=== PATIENT | female | born 1960 | race Caucasian/White ===

== ENCOUNTER 2017-05-10 09:02 | Inpatient (IN) | payer OTHER ==
[~2017-05-10] VITALS: Ht 154.9 cm; Wt 100.4 kg
[2017-05-10] VITALS (19 sets, daily range): BP systolic 100–125; BP diastolic 47–90; PULSE 72–90; RESP 16–20; Ht 154.9 cm; Wt 100.4 kg
[~2017-05-10 09:02] MED LIST: CEFAZOLIN 2 GM/50 ML (PMX) 50 ML IVPB SCH; SOD CHLORIDE 0.9% 1,000 ML IV SCH
[2017-05-10] MEDS ORDERED: INSU100I12 SQ (09:49)
[2017-05-10] MEDS ORDERED: GABA100C14 PO (09:50)
[2017-05-10] MEDS ORDERED: LANT3I SC (09:50)
[2017-05-10] MEDS ORDERED: ATEN50TA PO (09:51)
[2017-05-10] MEDS ORDERED: ATOR10TA65 PO (09:51)
[2017-05-10] MEDS ORDERED: TRAM-40 PO (09:52)
[2017-05-10] MEDS ORDERED: HYDR-906 PO (09:55)
[2017-05-10] MEDS ORDERED: ROCURONIUM 50 MG INJ ONE (11:11)
[2017-05-10] MEDS ORDERED: PROPOFOL 20 ML ONE (11:11)
[2017-05-10] MEDS ORDERED: MIDAZOLAM 1 MG/ML 2 ML INJ ONE (11:12)
[2017-05-10] MEDS ORDERED: PHENYLephrine (100 MCG/ML) 5ML SYG ONE ×2 (11:36→11:54)
[2017-05-10] MEDS ORDERED: METOCLOPRAMIDE 10 MG INJ ONE (11:54)
[2017-05-10] MEDS ORDERED: ACETAMINOPHEN 1000MG/100ML IV 100 ML ONE (11:54)
[2017-05-10] MEDS ORDERED: ONDANSETRON 4 MG INJ ONE (11:54)
[2017-05-10] MEDS ORDERED: DEXAMETHASONE 4 MG/ML 1 ML INJ ONE (11:54)
[2017-05-10] MEDS: CEFAZOLIN 2 GM/50 ML (PMX) 50 ML IVPB SCH ×2 (12:00→20:13)
[2017-05-10] MEDS ORDERED: BUPIVACAINE 0.25% (MPF) 30 ML INJ ONE (12:05)
[2017-05-10] MEDS ORDERED: KETOROLAC 30 MG INJ ONE (12:12)
[2017-05-10] MEDS ORDERED: SUGAMMADEX SODIUM 200 MG/2 ML VIAL IV ONE (12:28)
[2017-05-10] MEDS ORDERED: MEPERIDINE 25 MG INJ IV PRN (12:30)
[2017-05-10] MEDS ORDERED: DIPHENHYDRAMINE 50 MG INJ IV PRN (12:30)
[2017-05-10] MEDS ORDERED: FENTAnyl 50 MCG/ML VIAL IV PRN ×3 (12:30)
[2017-05-10] MEDS ORDERED: EPHEDrine SULFATE 50 MG/5 ML SYG IV PRN (12:30)
[2017-05-10] MEDS ORDERED: ONDANSETRON 4 MG INJ IV PRN (12:30)
[2017-05-10] MEDS ORDERED: hydrALAzine 20 MG INJ IV PRN (12:30)
[2017-05-10] MEDS ORDERED: LABETALOL HCL 20MG INJ IV PRN (12:30)
[2017-05-10] MEDS ORDERED: METOCLOPRAMIDE 10 MG INJ IV PRN (12:30)
[2017-05-10] MEDS ORDERED: HYDROmorphONE (0.2 MG/ML) 10ML SYG IV PRN ×3 (12:30)
--- NOTE | 2017-05-10 13:26 | OPR ---
Date/Time of Note Date/Time of Note DATE: 05/10/17 TIME: 13:19 Operative Report Procedure Date: May 10, 2017 Preoperative Diagnosis left breast cancer Postoperative Diagnosis same Operation/Procedure Performed 1. left modified radical mastectomy 2. left axillary node dissection 3. localized adjacent tissue transfer with the use of skin flaps 42 sq cm defect 4. left chest wall #19 jeff drain placement 5. therapeutic subcutaneous injection of localized anesthesia Surgeon see signature line Pediatric Radiologist none Anesthesia Type: general Estimated Blood Loss: 10 - 50 ml's Transfusion none Specimen left breast surgical markings short superior long lateral skin anterior left axillary node dissection Grafts/Implants none Complications none Indications This is a 56-year-old female with locally advanced left breast cancer with metastatic disease to the left axilla. She underwent neoadjuvant event. She is here today for a left modified radical mastectomy. Risks alternatives benefits and personnel were discussed the patient. Potential complications including but not limited to bleeding infection seroma hematoma nerve injury recurrent cancer were discussed the patient. Patient expresses understanding consents to the operation. Procedure Description Patient is taken to the OR and prepped and draped in usual sterile fashion. Surgical timeout was performed. IV antibiotics given. 2-0 silk is used to make surgical markings including the nipple areolar complex to excise a elliptical region of the anterior breast tissue along with the skin. Superior skin flaps were raised using retractors. Dissection cautery was carried down all the way down to the superior edge of the breast tissue and down to the chest wall. Inferior skin flap was then raised and dissection cautery was carried out all the way down to the chest wall. The breast was then resected circumferentially all along the chest wall and pectoral fascia was also resected along with the specimen. Surgical markings of short superior long lateral and skin anterior were given. The mastectomy was then performed. The surgical site was irrigated. There is good hemostasis. Attention was then paid to the left axilla. Axillary incision was made with a 15 blade dissection cautery was carried down through the clavipectoral fascia. The axillary contents appeared fibrotic after the neoadjuvant treatment. Had a LigaSure was used to dissect the axillary contents away from the axillary vein latissimus dorsi and serratus anterior. Careful attention was paid to keep the long thoracic and thoracodorsal out of harm's way however due to the fibrotic nature after the neoadjuvant treatment this is very difficult. Hemostasis was established. Surgical site was then irrigated. There is was good hemostasis. Due to large tissue defect localized adjacent to transfer with these of skin flaps was performed closing both surgical sites with interrupted 3-0 Vicryl and running 4-0 Monocryl. Therapeutic subcutaneous local anesthesia was injected throughout the incision sites in both the axilla and the mastectomy site. Dry dressings were applied. Guerda JAIMES May 10, 2017 13:26
[2017-05-10] MEDS ORDERED: CEFAZOLIN 2 GM/50 ML (PMX) 50 ML IVPB SCH (13:30)
[2017-05-10 13:57] LABS: BASOPHILS % 0.3 % (0.0-2.0); EOSINOPHILS % 0.5 % (0.0-7.0); HEMATOCRIT 29.8 % (37.0-47.0); HEMOGLOBIN 9.5 g/dl (12.0-16.0); HOLD TRANSMISSIONS 1; LYMPHOCYTES # 1.7 10^3/ul (0.8-2.9); LYMPHOCYTES % 26.9 % (15.0-51.0); MEAN CORPUSCULAR HEMOGLOBIN 33.7 pg (29.0-33.0); MEAN CORPUSCULAR HGB CONC 31.9 g/dl (32.0-37.0); MEAN CORPUSCULAR VOLUME 105.7 fl (82.0-101.0); MEAN PLATELET VOLUME 8.2 fl (7.4-10.4); MONOCYTE # 0.3 10^3/ul (0.3-0.9); MONOCYTES % 4.7 % (0.0-11.0); NEUTROPHIL # 4.3 10^3/ul (1.6-7.5); PLATELET COUNT 214 10^3/UL (140-415); RED BLOOD COUNT 2.82 10^6/ul (4.20-5.40); RED CELL DISTRIBUTION WIDTH 16.3 % (11.5-14.5); WHITE BLOOD COUNT 6.4 10^3/ul (4.8-10.8)
[2017-05-10] MEDS ORDERED: SUCCINYLCHOLINE CHLORIDE 100 MG/5 ML SYG IV ONE (13:58)
[2017-05-10] MEDS ORDERED: CLINDAMYCIN 900 MG/D5W (PMX) 50 ML IVPB ONE (14:04)
[2017-05-10 14:14] LABS: ALBUMIN 3.4 g/dl (3.3-4.9); ALBUMIN/GLOBULIN RATIO 1.17; BILIRUBIN,INDIRECT 0.5 mg/dl (0-1.1); BILIRUBIN,TOTAL 0.5 mg/dl (0.2-1.3); TOTAL PROTEIN 6.3 g/dl (6.1-8.1)
[2017-05-10 14:21] LABS: CALCIUM 7.9 mg/dl (8.4-10.2); CREATININE 0.58 mg/dl (0.44-1.00); POTASSIUM 3.9 mmol/L (3.5-5.1)
[2017-05-10] MEDS ORDERED: HYDROmorphONE 0.2 MG/ML PCA IV SCH (14:30)
[2017-05-10] MEDS ORDERED: HYDROCODONE/APAP (5/325) TAB PO PRN (15:30)
[2017-05-10] MEDS: SOD CHLORIDE 0.9% 1,000 ML IV SCH ×2 (16:33→23:17)
[2017-05-10] MEDS: INSULIN ASPART [NOVOLOG] 3 ML PEN SC SCH ×3 (17:56→20:29)
[2017-05-11 01:06] VITALS: BP 102/75; RESP 20
[2017-05-11] MEDS ORDERED: ACCU-CHEK XX SCH ×3 (02:00)
[2017-05-11] MEDS ORDERED: INSULIN ASPART [NOVOLOG] 3 ML PEN SC ONE (03:30)
[2017-05-11] MEDS: CEFAZOLIN 2 GM/50 ML (PMX) 50 ML IVPB SCH (03:44)
[2017-05-11] MEDS: SOD CHLORIDE 0.9% 1,000 ML IV SCH ×3 (03:44→13:52)
--- NOTE | 2017-05-11 04:01 | HP ---
DATE OF ADMISSION: 05/10/2017 HISTORY OF PRESENT ILLNESS: The patient is a 56-year-old pleasant female with past medical history positive for hypertension, diabetes, arthritis. The patient presented with locally advanced left br east cancer with metastatic disease to the left axilla. The patient underwent neoadjuvant chemother apy. The patient was evaluated by Dr. Erazo in surgical consultation and patient was brought to the [facility] and underwent left modified radical mastectomy and left axillary node dissection. Postopera tively, the patient experienced moderate pain and patient will be admitted for further evaluation an d management. PAST MEDICAL HISTORY: Positive for hypertension, insulin-dependent diabetes, arthritis and chronic back pain and obesity. PAST SURGICAL HISTORY: The patient is status post . FAMILY HISTORY: Patient denies any history of breast or ovarian cancer. SOCIAL HISTORY: Patient lives at home with the family. The patient denies any tobacco use, denies any alcohol use, denies any illicit drug use. ALLERGIES: NO KNOWN ALLERGIES. HOME MEDICATIONS: Include: 1. Atenolol. 2. Atorvastatin. 3. Gabapentin. 4. Metaline. 5. Lantus units subQ b.i.d. 6. Tramadol. 7. Insulin. 8. Lispro 20 units subQ with meals. REVIEW OF SYSTEMS: A 12-point review of systems is negative unless what is mentioned in the HPI. PHYSICAL ASSESSMENT: GENERAL: Well-developed, obese female currently is awake, alert. VITAL SIGNS: Temperature 98.6, pulse 76, blood pressure 112/47, respiratory rate 17, oxygen saturat ion 94% on 2 liters nasal cannula. HEENT: Head is atraumatic, normocephalic. Pupils equal, round, reactive to light and accommodation . Oral mucosa is pink and moist. NECK: Supple, no cervical lymphadenopathy, no thyromegaly. LUNGS: Clear bilaterally. There is no rhonchi, wheezes, rales noted. CARDIOVASCULAR: Normal S1, S2. No murmurs, gallops, clicks, rubs noted. CHEST: Status-post surgery with dry, clean and intact dressing and left axillary HEVER. ABDOMEN: Protuberant, soft, nondistended, nontender. Bowel sounds present. There is no guarding o r rebound tenderness. EXTREMITIES: No edema, clubbing, cyanosis. Pulses equal bilaterally 2+. SKIN: There is no rash, petechiae noted. NEUROLOGIC: Patient is awake, alert and oriented x4. No focal deficits noted. Patient moves all e xtremities. LABORATORY DATA: On admission, CBC: White blood cells 6.4, hemoglobin is 9.5, hematocrit 29.8, christofer telets 214. Chemistry: Sodium is 138, potassium 3.9, chloride 104, carbon dioxide 30, anion gap 8, BUN is 9, creatinine 0.58, glucose 164, calcium is 7.9. ASSESSMENT AND PLAN: 1. Locally advanced left breast cancer with metastatic disease to the left axilla status post left modified radical mastectomy and left axillary node dissection. Patient is continued on Dilaudid COMMERCIAL ESTIMATOR for pain control, will continue Zofran p.r.n. for nausea. Continue IV fluids and postoperative ant ibiotics. Advance diet to 1800 ADA. 2. Insulin-dependent diabetes mellitus. We will continue Lantus and premeal NovoLog. Continue to monitor Accu-Chek before meals and at bedtime. 3. Hypertension. Continue to monitor blood pressure. Continue atenolol. 4. Obesity with body mass index 41.8. We will continue incentive spirometer q. 1 hour while patien t is awake, sequential compression devices for deep venous thrombosis prophylaxis. Further recommen dations based on clinical course. Plan of care discussed with Dr. Patel. Dictated By: CARINE GARRETT SOCCER COACH for ROBE PATEL MD SR/NTS Conf#: [id number] DID#: [id number]
[2017-05-11 05:00] VITALS: BP 113/61; PULSE 74; RESP 18
[2017-05-11 05:19] LABS: BASOPHILS % 0.2 % (0.0-2.0); HEMATOCRIT 27.7 % (37.0-47.0); HEMOGLOBIN 8.7 g/dl (12.0-16.0); LYMPHOCYTES # 0.9 10^3/ul (0.8-2.9); LYMPHOCYTES % 15.4 % (15.0-51.0); MEAN CORPUSCULAR HEMOGLOBIN 33.2 pg (29.0-33.0); MEAN CORPUSCULAR HGB CONC 31.4 g/dl (32.0-37.0); MEAN CORPUSCULAR VOLUME 105.7 fl (82.0-101.0); MEAN PLATELET VOLUME 8.6 fl (7.4-10.4); MONOCYTE # 0.4 10^3/ul (0.3-0.9); MONOCYTES % 6.2 % (0.0-11.0); NEUTROPHIL # 4.5 10^3/ul (1.6-7.5); NEUTROPHILS % 77.7 % (39.0-77.0); PLATELET COUNT 222 10^3/UL (140-415); RED BLOOD COUNT 2.62 10^6/ul (4.20-5.40); RED CELL DISTRIBUTION WIDTH 15.9 % (11.5-14.5); WHITE BLOOD COUNT 5.8 10^3/ul (4.8-10.8)
[2017-05-11 05:50] LABS: ALBUMIN 3.1 g/dl (3.3-4.9); ALBUMIN/GLOBULIN RATIO 1.1; BILIRUBIN,INDIRECT 0.4 mg/dl (0-1.1); BILIRUBIN,TOTAL 0.4 mg/dl (0.2-1.3); CALCIUM 7.7 mg/dl (8.4-10.2); CREATININE 0.58 mg/dl (0.44-1.00); POTASSIUM 4.3 mmol/L (3.5-5.1); TOTAL PROTEIN 5.9 g/dl (6.1-8.1)
--- NOTE | 2017-05-11 07:49 | PN ---
Date/Time of Note Date/Time of Note DATE: 05/11/17 TIME: 07:48 Assessment/Plan VTE Prophylaxis VTE Prophylaxis Intervention: SCD's Lines/Catheters IV Catheter Type (from Nrsg): Peripheral IV Assessment/Plan Chief Complaint/Hosp Course s/p let modified radical mastectomy, axillary node dissection and placement of drain Problems: Assessment/Plan doing well dc home with drain and f/u in 2 weeks Subjective 24 Hr Interval Summary Free Text/Dictation doing well, tolerating diet, pain under control Exam/Review of Systems Vital Signs Vitals Vital Signs Date Time Temp Pulse Resp B/P Pulse Ox O2 Delivery O2 Flow Rate FiO2 05/11/17 05:00 18 05/11/17 05:00 98.8 74 113/61 98 Nasal Cannula 2.0 Intake and Output 05/10/17 05/10/17 05/11/17 15:00 23:00 07:00 Intake Total 1600 ml 290 ml 550 ml Output Total 503 ml 100 ml 935 ml Balance 1097 ml 190 ml -385 ml Exam c/d/i drain in place serosanguinous Results Result Diagram: 05/11/17 0429 05/11/17 0429 Results 24 hrs Laboratory Tests Test 05/10/17 10:06 05/10/17 13:33 05/10/17 13:52 05/10/17 17:48 Bedside Glucose 142 145 244 H White Blood Count 6.4 Red Blood Count 2.82 L Hemoglobin 9.5 L Hematocrit 29.8 L Mean Corpuscular Volume 105.7 H Mean Corpuscular Hemoglobin 33.7 H Mean Corpuscular Hemoglobin Concent 31.9 L Red Cell Distribution Width 16.3 H Platelet Count 214 Mean Platelet Volume 8.2 Neutrophils % 67.0 Lymphocytes % 26.9 Monocytes % 4.7 Eosinophils % 0.5 Basophils % 0.3 Nucleated Red Blood Cells % 0.0 Neutrophils # 4.3 Lymphocytes # 1.7 Monocytes # 0.3 Eosinophils # 0.0 Basophils # 0.0 Nucleated Red Blood Cells # 0.0 CBC Results Faxed/Phoned 1 *H Sodium Level 138 Potassium Level 3.9 Chloride Level 104 Carbon Dioxide Level 30 Anion Gap 8 Blood Urea Nitrogen 9 Creatinine 0.58 Glucose Level 164 Calcium Level 7.9 L Total Bilirubin 0.5 Direct Bilirubin 0.00 Indirect Bilirubin 0.5 Aspartate Amino Transf (AST/SGOT) 23 Alanine Aminotransferase (ALT/SGPT) 25 Alkaline Phosphatase 51 Total Protein 6.3 Albumin 3.4 Globulin 2.90 Albumin/Globulin Ratio 1.17 Test 05/10/17 20:24 05/11/17 02:13 05/11/17 04:29 Bedside Glucose 257 H 263 H White Blood Count 5.8 Red Blood Count 2.62 L Hemoglobin 8.7 L Hematocrit 27.7 L Mean Corpuscular Volume 105.7 H Mean Corpuscular Hemoglobin 33.2 H Mean Corpuscular Hemoglobin Concent 31.4 L Red Cell Distribution Width 15.9 H Platelet Count 222 Mean Platelet Volume 8.6 Neutrophils % 77.7 H Lymphocytes % 15.4 Monocytes % 6.2 Eosinophils % 0.0 Basophils % 0.2 Nucleated Red Blood Cells % 0.0 Neutrophils # 4.5 Lymphocytes # 0.9 Monocytes # 0.4 Eosinophils # 0.0 Basophils # 0.0 Nucleated Red Blood Cells # 0.0 Sodium Level 137 Potassium Level 4.3 Chloride Level 103 Carbon Dioxide Level 29 Anion Gap 9 Blood Urea Nitrogen 14 Creatinine 0.58 Glucose Level 265 #H Hemoglobin A1c 6.9 H Calcium Level 7.7 L Total Bilirubin 0.4 Direct Bilirubin 0.00 Indirect Bilirubin 0.4 Aspartate Amino Transf (AST/SGOT) 14 L Alanine Aminotransferase (ALT/SGPT) 21 Alkaline Phosphatase 47 Total Protein 5.9 L Albumin 3.1 L Globulin 2.80 Albumin/Globulin Ratio 1.10 Medications Medications Current Medications Sodium Chloride (NS) 1,000 ml @ 100 mls/hr Q10H IV Last administered on 03:44; Admin Dose 100 MLS/HR; Start 05/10/17 at 13:17 Hydromorphone HCl (Dilaudid METAL BONDING WORKER) 0 MG/HR CONTINUOUS R... Q4PCA IV Last administered on 05/10/17 14:32; Admin Dose 6 MG; Start 05/10/17 at 14:30 Acetaminophen/ Hydrocodone Bitart ([place] (5/325)) 1 tab Q4H PRN PO PAIN; Start 05/10/17 at 15:30 Atenolol (Tenormin) 50 mg DAILY PO ; Start 05/11/17 at 09:00 Insulin Glargine (Lantus) 30 unit DAILY@08 SC ; Start 05/11/17 at 08:00 Diagnostic Test (Pha) 1 ea 1 ea 02 XX ; Start 05/11/17 at 02:00 Cefazolin Sodium/ Dextrose (Ancef 2 Gm/50 ml (Pmx)) 50 ml @ 100 mls/hr Q8H IVPB Last administered on 05/11/17t 03:44; Admin Dose 100 MLS/HR; Start 05/10 at 12:00; Stop 05/11/17 at 11:59 Guerda JAIMES May 11, 2017 07:49
[2017-05-11] MEDS ORDERED: INSULIN GLARGINE [LANtus] 3 ML PEN SC SCH (08:00)
[2017-05-11 08:04] VITALS: BP 103/51; RESP 18
[2017-05-11] MEDS: INSULIN ASPART [NOVOLOG] 3 ML PEN SC SCH ×4 (08:52→12:42)
[2017-05-11] MEDS ORDERED: ATENOLOL 50 MG TAB PO SCH (09:00)
--- NOTE | 2017-05-11 14:53 | PDOCDIS ---
Discharge Instructions CONDITION Patient Condition: Stable HOME CARE INSTRUCTIONS: Diet Instructions: ACTIVITY: Activity Restrictions: Slowly Increase Activity Rest between Activity Avoid heavy lifting Do not Drive Do not operate Machinery Do not operate Power Tool Avoid Heavy Housework Bathing Restrictions: Sponge Bath FOLLOW UP/APPOINTMENTS Follow-up Plan FU with primary MD X 1 WEEK FU with surgery as recommended. Call 911 or got to the nearest hospital if symptoms get worse- patient verbalized understanding dc instructions. Virgilio Patel/family/staff PIERCE MARQUEZ May 11, 2017 14:52
[2017-05-11] MEDS ORDERED: DOCU-144 PO (14:56)
[2017-05-11] MEDS ORDERED: NOVO3I SC (14:58)
[2017-05-11] MEDS ORDERED: LANT3I SC (14:58)
--- NOTE | 2017-05-11 15:01 | DS ---
Date/Time of Note Date/Time of Note DATE: 05/11/17 TIME: 15:01 Discharge Summary Admission/Discharge Info Admit Date/Time May 10, 2017 at 09:02 Discharge Date/Time Hospital Course s/p let modified radical mastectomy, axillary node dissection and placement of drain Home Meds Active Scripts Insulin Glargine* (Lantus*) 100 Unit/Ml Soln, 30 UNIT SC DAILY@08 for 30 Days Prov:PIERCE MARQUEZ 05/11/17 Insulin Aspart* (Novolog Insulin Pen*) 100 Unit/Ml Soln, 10 UNIT SC WITH MEALS for 30 Days Prov:PIERCE MARQUEZ 05/11/17 Docusate Sodium* (Colace*) 100 Mg Capsule, 100 MG PO BID, #30 CAP Prov:PIERCE MARQUEZ 05/11/17 Reported Medications Hydrocodone/Acetaminophen ([place] 5-325 Tablet) 1 Each Tablet, 1 EACH PO Q6 Y for PAIN, TAB 05/10/17 Tramadol Hcl* (Ultram*) 50 Mg Tablet, 50 MG PO BID Y for PAIN, TAB 05/10/17 Atenolol* (Atenolol*) 50 Mg Tablet, 50 MG PO DAILY, #30 TAB 05/10/17 Atorvastatin Calcium (Atorvastatin Calcium) 10 Mg Tablet, 10 MG PO QHS, #30 TAB 05/10/17 Gabapentin* (Gabapentin*) 100 Mg Capsule, 100 MG PO QHS, #90 CAP 05/10/17 Discontinued Reported Medications Insulin Glargine* (Lantus*) 100 Unit/Ml Soln, 50 UNIT SC BID, #1 VIAL 05/10/17 Insulin Lispro (Humalog Kwikpen U-100) 100 Unit/1 Ml Insuln.pen, 20 UNIT SQ AC MEALS Y for ELEVATED GLUCOSE HOLD IF BS BELOW 100 OR NPO 05/10/17 Follow-up Plan FU with primary MD X 1 WEEK FU with surgery as recommended. Call 911 or got to the nearest hospital if symptoms get worse- patient verbalized understanding dc instructions. Virgilio Patel/family/staff Primary Care Provider Vaibhav Juarez Pending Labs Laboratory Tests Test 05/10/17 17:48 05/10/17 20:24 05/11/17 02:13 05/11/17 04:29 Bedside Glucose 244mg/dL (70-220) 257mg/dL (70-220) 263mg/dL (70-220) White Blood Count 5.810^3/ul (4.8-10.8) Red Blood Count 2.6210^6/ul (4.20-5.40) Hemoglobin 8.7g/dl (12.0-16.0) Hematocrit 27.7% (37.0-47.0) Mean Corpuscular Volume 105.7fl (82.0-101.0) Mean Corpuscular Hemoglobin 33.2pg (29.0-33.0) Mean Corpuscular Hemoglobin Concent 31.4g/dl (32.0-37.0) Red Cell Distribution Width 15.9% (11.5-14.5) Platelet Count 87134^3/UL (140-415) Mean Platelet Volume 8.6fl (7.4-10.4) Neutrophils % 77.7% (39.0-77.0) Lymphocytes % 15.4% (15.0-51.0) Monocytes % 6.2% (0.0-11.0) Eosinophils % 0.0% (0.0-7.0) Basophils % 0.2% (0.0-2.0) Nucleated Red Blood Cells % 0.0/100WBC (0.0-0.0) Neutrophils # 4.510^3/ul (1.6-7.5) Lymphocytes # 0.910^3/ul (0.8-2.9) Monocytes # 0.410^3/ul (0.3-0.9) Eosinophils # 0.010^3/ul (0.0-0.5) Basophils # 0.010^3/ul (0.0-0.1) Nucleated Red Blood Cells # 0.010^3/ul (0.0-0.0) Sodium Level 137mmol/L (135-144) Potassium Level 4.3mmol/L (3.5-5.1) Chloride Level 103mmol/L (97-110) Carbon Dioxide Level 29mmol/L (21-31) Anion Gap 9 (8-16) Blood Urea Nitrogen 14mg/dl (7-20) Creatinine 0.58mg/dl (0.44-1.00) Glucose Level 265mg/dl (70-220) Hemoglobin A1c 6.9% (0-5.9) Calcium Level 7.7mg/dl (8.4-10.2) Total Bilirubin 0.4mg/dl (0.2-1.3) Direct Bilirubin 0.00mg/dl (0.00-0.20) Indirect Bilirubin 0.4mg/dl (0-1.1) Aspartate Amino Transf (AST/SGOT) 14IU/L (15-46) Alanine Aminotransferase (ALT/SGPT) 21IU/L (13-69) Alkaline Phosphatase 47IU/L (42-121) Total Protein 5.9g/dl (6.1-8.1) Albumin 3.1g/dl (3.3-4.9) Globulin 2.80g/dl (1.3-3.2) Albumin/Globulin Ratio 1.10 Test 05/11/17 08:38 05/11/17 12:35 Bedside Glucose 264mg/dL (70-220) 183mg/dL (70-220) PIERCE MARQUEZ May 11, 2017 15:01
[2017-05-11 15:10] VITALS: BP 106/60; RESP 18
== END 2017-05-11 16:15 | disposition home or self-care (01) | DRG 580 ==
LOC: REC 09:02 → EDSTATUS 14:00 → MS1 15:10
PROVIDERS: ADMIT Internal Medicine; ATTEND Surgery
PROC: 0HTU0ZZ Resection of Left Breast, Open Approach (ICD-10-PCS; 2017-05-10)
PROC: 0HHU0NZ Insertion of Tissue Expander into Left Breast, Open Approach (ICD-10-PCS; 2017-05-10)
PROC: 07B60ZZ Excision of Left Axillary Lymphatic, Open Approach (ICD-10-PCS; principal; 2017-05-10 11:00)
DX: C50.912 Malignant neoplasm of unspecified site of left female breast (principal); C79.89 Secondary malignant neoplasm of other specified sites; Z68.41 Body mass index [BMI] 40.0-44.9, adult; E11.9 Type 2 diabetes mellitus without complications; E66.9 Obesity, unspecified; G89.18 Other acute postprocedural pain; G89.29 Other chronic pain; M54.9 Dorsalgia, unspecified; Z79.4 Long term (current) use of insulin
CPT/HCPCS: 80053; 82962; 83036; 85025; 88307; J0131; J0690; J1100; J1170; J1815; J1885; J2250; J2370; J2405; J2765; J3010; J7030; J7999

== ENCOUNTER 2018-07-26 16:35 | Inpatient (IN) | payer OTHER ==
[~2018-07-26] VITALS: Ht 154.9 cm; Wt 89.8 kg
[~2018-07-26 16:35] MED LIST changes: +ATEN50TA PO; +ATOR10TA65 PO; -CEFAZOLIN 2 GM/50 ML (PMX) 50 ML IVPB SCH; +DOCU-144 PO; +GABA100C14 PO; +HYDR-4011 PO; +LANT3I SC; +NOVO3I SC; -SOD CHLORIDE 0.9% 1,000 ML IV SCH; +TRAM50TA PO
[2018-07-26 19:40] VITALS: PULSE 93
[2018-07-26 20:00] VITALS: PULSE 93
--- NOTE | 2018-07-26 20:00 | NUR ---
ADMIT PATIENT ADMITTED FROM [facility] DUE TO SOB, WITH DX OF PNEUMOTHORAX. AWAKE, ALERT, ORIENTED, AMBULATORY. REFUSED BED ALARM SHE SAID SHE FREQUENTLY GETS UP, EXPLAINED THE RISK AND BENEFITS OF THE BED ALARM, PATIENT VERBALIZED UNDERSTANDING BUT STILL REFUSED TO HAVE IT AND SAYING FAMILY IS WITH HER. NSR ON THE MONITOR.
[2018-07-26 20:15] VITALS: BP 140/62; PULSE 92; RESP 20
[2018-07-26 20:23] VITALS: Ht 154.9 cm; Wt 89.8 kg
[2018-07-26] MEDS ORDERED: HYDROCODONE/APAP (5/325) TAB PO PRN (20:30)
[2018-07-26] MEDS ORDERED: ACETAMINOPHEN 325 MG TAB PO PRN (20:30)
[2018-07-26] MEDS ORDERED: DOCUSATE SODIUM 100 MG CAP PO PRN (20:30)
[2018-07-26] MEDS ORDERED: NACL 0.9% 3 ML SYG IV SCH (20:30)
[2018-07-26] MEDS ORDERED: BISACODYL (EC) 5 MG TAB PO PRN (20:30)
[2018-07-26] MEDS ORDERED: ONDANSETRON 4 MG INJ IV PRN (20:30)
[2018-07-26] MEDS ORDERED: DEXTROSE 50% 50 ML SYRINGE IV PRN ×2 (21:00)
[2018-07-26] MEDS ORDERED: GLUCOSE GEL 15 GRAM TUBE PO PRN ×2 (21:00)
[2018-07-26] MEDS ORDERED: GLUCOSE GEL 15 GRAM TUBE BUCCAL PRN (21:00)
[2018-07-26] MEDS ORDERED: GLUCAGON 1 MG INJ IM PRN (21:00)
--- NOTE | 2018-07-26 21:22 | HP ---
Date/Time of Note Date/Time of Note DATE: 07/26/18 TIME: 21:22 Assessment/Plan VTE Prophylaxis SCD applied (from Nsg): No SCD contraindicated: other (bilateral lower extremity swelling) Pharmacological prophylaxis: NA/contraindicated Pharm contraindication: surgical contra Lines/Catheters IV Catheter Type (from Nrsg): port-a-cath Assessment/Plan Hospital Course This is a 57-year-old female being admitted to the telemetry floor for: #1 left-sided hydropneumothorax: At the current time we will obtain a stat chest x-ray. Supplemental oxygen. Consult CT surgery for Pleurx catheter, will defer this to the day team #2 breast cancer with metastasis: Patient currently is not on chemotherapy since April secondary to toxicity. Consider hematology consultation in house, will defer this to day team. Resume home pain medications #3 hypertension: Continue atenolol, EVERARDO inhibitor #4 diabetes meds: Continue insulin, insulin sliding scale, will hold home oral hypoglycemics #5 hyperlipidemia: Continue statin #6 DVT GI prophylaxis: We will obtain venous Doppler ultrasounds if those are negative then start her on SCDs. once the patient has her procedure performed we can give her chemical DVT prophylaxis, no GI prophylaxis indicated Further treatment strategy will be implemented as per the clinical course Result Diagram: 07/26/182048 Results 24hrs Laboratory Tests Test 07/26/18 20:49 White Blood Count 9.2 # Red Blood Count 3.70 #L Hemoglobin 8.6 L Hematocrit 29.7 L Mean Corpuscular Volume 80.3 #L Mean Corpuscular Hemoglobin 23.2 #L Mean Corpuscular Hemoglobin Concent 29.0 L Red Cell Distribution Width 20.1 #H Platelet Count 391 # Mean Platelet Volume 8.9 Immature Granulocytes % 0.900 H Neutrophils % 68.8 Lymphocytes % 23.3 Monocytes % 6.4 Eosinophils % 0.3 Basophils % 0.3 Nucleated Red Blood Cells % 0.0 Immature Granulocytes # 0.080 H Neutrophils # 6.3 Lymphocytes # 2.1 Monocytes # 0.6 Eosinophils # 0.0 Basophils # 0.0 Nucleated Red Blood Cells # 0.0 HPI/ROS Admit Date/Time Admit Date/Time Jul 26, 2018 at 19:23 Hx of Present Illness Chief complaint: Worsening shortness of breath This is a 57-year-old female with a history of metastatic breast cancer who presented to the ED at [facility] on 07/23/2018 with shortness of breath that had been going on for 2 weeks. She had no relieving factors of the shortness of breath. She would have shortness of breath with minimal exertion. She had a history of effusions in the past and had thoracentesis done. There was concern for possible repeat effusion. A chest x-ray was ordered which confirmed a large left pleural effusion. The patient had an emergent IR therapeutic thoracentesis done for drainage. After the drainage patient 12 respiratory distress and repeat chest x-ray showed a pneumothorax. Patient wanted to go home however prior to discharge she had a repeat chest x-ray done as well that showed a worsening pneumothorax and the patient was admitted to the hospital. He was also noted the patient required a nonrebreather mask which was eventually titrated down to 3 L nasal cannula. She remained stable in the ICU. She was found to have a left hydropneumothorax with increased left pleural effusion. Pulmonology was consulted and thoracic surgery was consulted for Pleurx catheter. She was subsequently transferred to [facility] for Pleurx catheter placement by . At the current time patient is sitting upright in bed in no acute distress, she does report that when she lays down to sleep it is does become difficult for her to breathe. She does see for her breast cancer she was being treated with chemotherapy however she has not been receiving chemotherapy since April secondary to toxicity. Allergies: NKDA Medications: See MAR Pertinent findings from the transfer facility please see chart for full details: CT chest without contrast on 1225/facility shows: Widespread blastic osseous and pulmonary metastasis. Bilateral diffuse groundglass and nodular opacities most likely of atypical infectious or inflammatory etiology. Moderate left and small right pleural effusions with associated compressive atelectasis and left lower lobe collapse. There is increased collapse of left lung as well as new large air component of to the pleural effusion which is now a hydropneumothorax. Labs from 07/25/2018 CBC: Hemoglobin 9.1 hematocrit 30 platelet count 423 white blood cell count 6.3 creatinine 0.8 ROS Const: As per HPI Eyes : No pain discharge or redness or change in visual acuity ENT: No pain, sore throat, congestion, congestion, dysphagia or discharge Respiratory: As per HPI Cardiovascular: No chest pain, palpitation, PND, or edema GI : no change in appetite, abdominal pain, nausea, vomiting, diarrhea, constipation, or change in the color his stool Genitourinary: No dysuria, hematuria, flank pain , discharge or CVA tenderness Musculoskeletal: No joint pain, back pain, neck pain, restricted range of motion in neck or joints Skin: No rash, bruising or hives Neuro: No headache, dizziness, syncope, seizure, focal weakness Endocrine: No polyuria, polydipsia, temperature intolerance Psych: No hallucination, depression, anxiety or suicidal ideation PMH/Family/Social Past Medical History Diabetes mellitus, hypertension, hyperlipidemia, breast cancer with metastasis stage IV, obesity hypoventilation syndrome Medications Current Medications Sodium Chloride 1,000 ml @ 70 mls/hr [id number] IV ; Start 07/27/18 at 00:00 IV Flush (NS 3 ml) 3 ml PER PROTOCOL IV ; Start 07/26/18 at 20:30 Ondansetron HCl (Zofran Inj) 4 mg Q6H PRN IV NAUSEA AND/OR VOMITING; Start 07/26/18 at 20:30 Acetaminophen (Tylenol Tab) 650 mg Q6H PRN PO PAIN LEVEL 1-3 OR FEVER; Start 07/26/18 at 20:30 Docusate Sodium (Colace) 100 mg Q12H PRN PO CONSTIPATION; Start 07/26/18 at 20:30 Bisacodyl (Dulcolax) 5 mg DAILY PRN PO CONSTIPATION; Start 07/26/18 at 20:30 Insulin Aspart (Novolog Insulin Pen) NOVOLOG *MILD* ALGORI... Q4 SC ; Start 07/26/18 at 21:00 Atenolol (Tenormin) 50 mg DAILY PO ; Start 07/27/18 at 09:00 Atorvastatin Calcium (Lipitor) 10 mg QHS PO ; Start 07/26/18 at 21:00 Docusate Sodium (Colace) 100 mg BID PO ; Start 07/26/18 at 21:00 Gabapentin (Neurontin) 100 mg QHS PO ; Start 07/26/18 at 21:00 Acetaminophen/ Hydrocodone Bitart ([place] (5/325)) 5 tab Q6 PRN PO PAIN; Start 07/26/18 at 20:30 Insulin Aspart (Novolog Insulin Pen) 10 unit WITH MEALS SC ; Start 07/27/18 at 07:55 Insulin Glargine (Lantus) 30 units DAILY@08 SC ; Start 07/27/18 at 08:00 Tramadol HCl (Ultram) 50 mg BID PRN PO PAIN; Start 07/26/18 at 20:30 Miscellaneous Information 1 ea NOTE XX ; Start 07/26/18 at 21:00 Glucose (Glutose) 15 gm Q15M PRN PO DECREASED GLUCOSE; Start 07/26/18 at 21:00 Glucose (Glutose) 22.5 gm Q15M PRN PO DECREASED GLUCOSE; Start 07/26/18 at 21:00 Dextrose (D50w Syringe) 25 ml Q15M PRN IV DECREASED GLUCOSE; Start 07/26/18 at 21:00 Dextrose (D50w Syringe) 50 ml Q15M PRN IV DECREASED GLUCOSE; Start 07/26/18 at 21:00 Glucagon (Glucagen) 1 mg Q15M PRN IM DECREASED GLUCOSE; Start 07/26/18 at 21:00 Glucose (Glutose) 15 gm Q15M PRN BUCCAL DECREASED GLUCOSE; Start 07/26/18 at 21:00 Coded Allergies: No Known Allergy (Unverified , 05/10/17) Past Surgical History Left breast mastectomy, status post thoracentesis x2 Family History Significant Family History: cancer (Brother of lung cancer) Social History Alcohol Use: none Smoking Status: Never smoker Drug Use: none Exam/Review of Systems Vital Signs Vitals Vital Signs Date Temp Pulse Resp B/P (MAP) Pulse Ox O2 O2 Flow FiO2 Time Delivery Rate 07/26/18 100.1 92 20 140/62 95 20:15 (88) Exam Exam General: Patient is a pleasant female currently sitting upright in bed in no acute distress HEENT: Atraumatic, normocephalic. The pupils are equal, round and reactive. Extraocular motor are intact Neck: Supple with full range of motion. No rigidity or meningismus Chest: Nontender Lungs: Diminished breath sounds at the left lung base, coarse breath sounds bilaterally Heart: Normal S1-S2, Regular rhythm and rate. Abdomen: Soft , nontender, nondistended , bowel sounds are present. No guarding no rebound tenderness , No masses or organomegaly. No costovertebral temporal angle mass Extremities: 2+ pitting edema of the bilateral lower extremities Neurologic: Normal mental status, speech normal, cranial nerves II through XII are intact, motor and sensory are intact, Additional Comments PROCEDURE: XR Chest. CLINICAL INDICATION: Pneumothorax TECHNIQUE: Frontal chest x-ray was obtained. COMPARISON: It is chest x-ray July 25 FINDINGS: Noted is a right IJ Port-A-Cath. Heart is not enlarged. Mediastinum is not widened. No hilar masses seen. There is persistent dense consolidation in the left lower lobe with left pleural effusion unchanged. Increased perihilar bronchovascular markings are seen in the right lung with small effusion. No pneumothorax is present. The osseous structures are intact. IMPRESSION: No pneumothorax visualized. Persistent dense left lower lobe consolidation with effusion. Increased perihilar bronchovascular markings with tiny right pleural effusion. No change. .Tae Good MD, MD Date Time Electronically viewed and signed by .Tae Good MD, MD on 07/26/2018 21:34 .A/ CC: JASON GAMEZ [id number] JASON GAMEZ Jul 26, 2018 21:22
[2018-07-26] MEDS: GABAPENTIN 100 MG CAP PO SCH (22:08)
[2018-07-26] MEDS: ATORVASTATIN 10 MG TAB PO SCH (22:08)
[2018-07-26] MEDS: DOCUSATE SODIUM 100 MG CAP PO SCH (22:08)
[2018-07-26] MEDS: INSULIN ASPART [NOVOLOG] 3 ML PEN SC SCH (23:06)
[2018-07-27] VITALS (10 sets, daily range): BP systolic 108–139; BP diastolic 53–68; PULSE 78–101; RESP 18–20
[2018-07-27] MEDS ORDERED: SOD CHLORIDE 0.9% 1,000 ML IV SCH
[2018-07-27] MEDS: INSULIN ASPART [NOVOLOG] 3 ML PEN SC SCH ×7 (01:43→17:49)
[2018-07-27] MEDS ORDERED: ACCU-CHEK XX SCH (02:00)
[2018-07-27] MEDS ORDERED: ENAL10TA PO (03:19)
[2018-07-27] MEDS ORDERED: ATOR10TA65 PO (03:19)
[2018-07-27] MEDS ORDERED: FER325 PO (03:19)
[2018-07-27] MEDS ORDERED: INSU100C SQ (03:19)
[2018-07-27] MEDS ORDERED: METF100010 PO (03:19)
[2018-07-27] MEDS ORDERED: ASPI-817 PO (03:19)
[2018-07-27] MEDS ORDERED: TRAM50TA PO (03:19)
[2018-07-27] MEDS ORDERED: ATEN50TA PO (03:19)
[2018-07-27] MEDS ORDERED: SOLOSTAR INJECTION (03:19)
--- NOTE | 2018-07-27 07:35 | NUR ---
EOSS: KEPT NPO POST MIDNIGHT. AWAITING PULMO CONSULT Addendum: 07/27/18 at 0739 by GRACIA SILVESTRE RN AWAITING PULM CONSULT WILL VERIFY DIET ORDER. STEADY GAIT. STILL REFUSING BED ALARM.
[2018-07-27] MEDS: DOCUSATE SODIUM 100 MG CAP PO SCH ×2 (09:00→21:00)
[2018-07-27] MEDS: ATENOLOL 50 MG TAB PO SCH (09:19)
[2018-07-27] MEDS: INSULIN GLARGINE [LANTus] (100 UNITS/ML) SYG SC SCH (09:36)
--- NOTE | 2018-07-27 10:28 | NUR ---
Discharge planning; Followed up on order for home oxygen set up; will need to assess Patient without oxygen support and evaluate her oxygen saturation tolerance. Informed arts and humanities council director and will obtain oxygen saturation, in the meantime will have order details along with clinical report to [facility] .
--- NOTE | 2018-07-27 10:40 | NUR ---
Wound Care Consult: This is a 57-year-old female with a history of metastatic breast cancer who presented to the ED at [facility] on 07/23/2018 with shortness of breath that had been going on for 2 weeks. She had no relieving factors of the shortness of breath. She would have shortness of breath with minimal exertion. She had a history of effusions in the past and had thoracentesis done. There was concern for possible repeat effusion. A chest x-ray was ordered which confirmed a large left pleural effusion. The patient had an emergent IR therapeutic thoracentesis done for drainage. Wound care team consulted for: Right Gluteal discoloration. Skin intact and clean. Keep clean and dry Erythematous perineal area. Cleanse with mild soap and water, dry well. apply Calazime cream twice a day and as needed. Reposition every 2 hours per department protocol. elevate heels to off-load CATALINA coordinated with carlito Child RN regarding assessment and treatment recommendation. Joshua Duarte RN MSN WOCN CM
[2018-07-27] MEDS: ENALAPRIL 10 MG TAB PO SCH (12:04)
[2018-07-27] MEDS: FUROSEMIDE 40 MG INJ IV SCH ×2 (12:04→17:50)
--- NOTE | 2018-07-27 12:30 | NUR ---
RN NOTES: Checked pt's O2 sat on room air while sitting and standing, it was 86%. MD and case management made aware and will order home oxygen.
--- NOTE | 2018-07-27 16:01 | NUR ---
RN NOTES: Report given to JOSÉ Giles in 2NE.
--- NOTE | 2018-07-27 16:18 | PN ---
Date/Time of Note Date/Time of Note DATE: 07/27/18 TIME: 16:08 Assessment/Plan VTE Prophylaxis Risk score (from Ns)>0 risk: 6 SCD applied (from Ns): No SCD contraindicated: low risk/ambulating Pharmacological prophylaxis: NA/contraindicated Pharm contraindication: low risk/ambulating Lines/Catheters IV Catheter Type [facility]from [facility] [place] Assessment/Plan Assessment/Plan 57 yo obese woman with metastatic breast cancer transferred here for L sided malignant effusion for PleurX. #left-sided hydropneumothorax - She has a L malignant effusion - Subsequently developed pneumothorax after thoracentesis at OSH. This pneumo has decreased in size since 07/24, does not require chest tube. - The patient has good functional status and is about ECOG 1-2. - Patient and son understand that pleurX will likely be permanent, as malignant effusions do not usually resolve. - They also understand that pleurX will require daily maintenance and will not necessary get the patient off oxygen. - Overall the patient is a good candidate for pleurX. - Spoke to radiology nurse; Dr. Johnson (IR) is tentatively planning for Monday 07/30 in the OR with anesthesia. Hold anticoag prior, NPO before MN. # breast cancer with metastasis: - Patient currently is not on chemotherapy since April secondary to toxicity. - Dr. Claire follows outpatient. - Cont home analgesics. # hypertension: Continue atenolol, EVERARDO inhibitor # diabetes: Continue insulin, insulin sliding scale, will hold home oral hypoglycemics # hyperlipidemia: Continue statin # DVT GI prophylaxis: SCDs Result Diagram: 07/27/18 0554 07/27/18 0554 Results 24hrs x Subjective 24 Hr Interval Summary Free Text/Dictation No acute overnight events. Patient sitting up comfortably in chair. Updated patient's son over the phone today with the plan and he's in agreement. Exam/Review of Systems Vital Signs Vitals Vital Signs Date Temp Pulse Resp B/P (MAP) Pulse Ox O2 O2 Flow FiO2 Time Delivery Rate 07/27/18 97.9 84 18 115/53 98 15:19 (73) 07/27/18 Nasal 3.0 08:30 Cannula Intake and Output 07/26/18 07/26/18 07/27/18 1515:00 23:00 07:00 IntakeIntake Total 950 ml BalanceBalance 950 ml Exam General: Obese woman breathing comfortably on nasal cannula sitting up in chair. HEENT: Atraumatic, normocephalic. The pupils are equal, round and reactive. Extraocular motor are intact Neck: Supple with full range of motion. No rigidity or meningismus Chest: Nontender Lungs: Diminished breath sounds at the left lung base, coarse breath sounds bilaterally Heart: Normal S1-S2, Regular rhythm and rate. Abdomen: Soft , nontender, nondistended , bowel sounds are present. No guarding no rebound tenderness , No masses or organomegaly. No costovertebral temporal angle mass Extremities: 2+ pitting edema of the bilateral lower extremities Medications Medications Current Medications IV Flush (NS 3 ml) 3 ml PER PROTOCOL IV ; Start 07/26/18 at 20:30 Ondansetron HCl (Zofran Inj) 4 mg Q6H PRN IV NAUSEA AND/OR VOMITING; Start 07/26/18 at 20:30 Acetaminophen (Tylenol Tab) 650 mg Q6H PRN PO PAIN LEVEL 1-3 OR FEVER; Start 07/26/18 at 20:30 Docusate Sodium (Colace) 100 mg Q12H PRN PO CONSTIPATION; Start 07/26/18 at 20:30 Bisacodyl (Dulcolax) 5 mg DAILY PRN PO CONSTIPATION; Start 07/26/18 at 20:30 Insulin Aspart (Novolog Insulin Pen) NOVOLOG *MILD* ALGORI... Q4 SC Last administered on 07/27/18at 12:16; Admin Dose 2 UNIT; Start 07/26/18 at 21:00 Atenolol (Tenormin) 50 mg DAILY PO Last administered on 07/27/18at 09:19; Admin Dose 50 MG; Start 07/27/18 at 09:00 Atorvastatin Calcium (Lipitor) 10 mg QHS PO Last administered on 07/26/18at 22:08; Admin Dose 10 MG; Start 07/26/18 at 21:00 Docusate Sodium (Colace) 100 mg BID PO Last administered on 07/26/18at 22:08; Admin Dose 100 MG; Start 07/26/18 at 21:00 Gabapentin (Neurontin) 100 mg QHS PO Last administered on 07/26/18at 22:08; Admin Dose 100 MG; Start 07/26/18 at 21:00 Acetaminophen/ Hydrocodone Bitart ([place] (5/325)) 5 tab Q6 PRN PO PAIN; Start 07/26/18 at 20:30 Insulin Aspart (Novolog Insulin Pen) 10 unit WITH MEALS SC Last administered on 07/27/18at 12:15; Admin Dose 10 UNIT; Start 07/27/18 at 07:55 Insulin Glargine (Lantus) 30 units DAILY@08 SC Last administered on 07/27/18at 09:36; Admin Dose 30 UNITS; Start 07/27/18 at 08:00 Tramadol HCl (Ultram) 50 mg BID PRN PO PAIN; Start 07/26/18 at 20:30 Miscellaneous Information 1 ea NOTE XX ; Start 07/26/18 at 21:00 Glucose (Glutose) 15 gm Q15M PRN PO DECREASED GLUCOSE; Start 07/26/18 at 21:00 Glucose (Glutose) 22.5 gm Q15M PRN PO DECREASED GLUCOSE; Start 07/26/18 at 21:00 Dextrose (D50w Syringe) 25 ml Q15M PRN IV DECREASED GLUCOSE; Start 07/26/18 at 21:00 Dextrose (D50w Syringe) 50 ml Q15M PRN IV DECREASED GLUCOSE; Start 07/26/18 at 21:00 Glucagon (Glucagen) 1 mg Q15M PRN IM DECREASED GLUCOSE; Start 07/26/18 at 21:00 Glucose (Glutose) 15 gm Q15M PRN BUCCAL DECREASED GLUCOSE; Start 07/26/18 at 21:00 Furosemide (Lasix) 40 mg BID DIURETICS IV Last administered on 07/27/18at 12:04; Admin Dose 40 MG; Start 07/27/18 at 09:30 Enalapril Maleate (Vasotec) 10 mg DAILY PO Last administered on 07/27/18at 12:04; Admin Dose 10 MG; Start 07/27/18 at 11:00 VONDA JACQUES MD Jul 27, 2018 16:18
--- NOTE | 2018-07-27 16:38 | RADRPT ---
Echocardiogram Report Patient Name: KEY CASTELLANO Gender: Female Date: 1960 Study Date: 27-Jul-2018 Insurance Analyst: Morris Gomes [facility] Location: [address] Ref. Physician: JASON GAMEZ Quality: Technically Difficult Study Procedures: Transthoracic echocardiogram with complete 2D, M-Mode, and doppler examination. Indications: Bilateral pitting edema. 2D/M Mode Doppler Measurement Value Normal Ranges Measurement Value Normal Ranges LVIDd 2D 4.0 3.5 - 5.6 cm AV Peak Peter 1.5 m/sec LVIDs 2D 2.6 2.1 - 4.1 cm AV Peak PG 9.0 mmHg FS 2D 33.2 % LVOT Peak Peter 1.4 m/sec LVPWd 2D 1.1 0.6 - 1.1 cm LVOT Peak PG 8.0 mmHg IVSd 2D 1.4 0.6 - 1.1 cm MV E Peak Peter 0.8 m/sec IVS/LVPW 2D 1.3 MV A Peak Peter 1.0 m/sec AoR Diam 2D 2.3 2.0 - 3.7 cm MV E/A 0.8 LA/Ao 2D 1 0 - 1 MV Decel Time 201 msec EDV 2D 61.6 cm3 MV E/A 0.8 ESV 2D 18.4 cm3 TR Peak Peter 2.5 m/sec LA Dimen 2D 3.4 2.3 - 4.0 cm TR Peak PG 24.0 mmHg RVSP 32.0 mmHg Findings Left Ventricle: Normal left ventricular systolic function. Normal left ventricular cavity size. Sigmoid septum. Ejection fraction is visually estimated at 60 %. Tissue Doppler/Mitral Doppler indices are consistent with impaired relaxation (Stage I diastolic dysfunction). Right Ventricle: Normal right ventricular size. Normal right ventricular systolic function. Left Atrium: The left atrium is normal in size. Right Atrium: The right atrium is normal in size. Mitral Valve: Mild mitral leaflet calcification. Mild mitral annular calcification. Trace mitral regurgitation. Aortic Valve: No significant aortic stenosis or insufficiency. Aortic cusps appear mildly calcified. Trace aortic valve regurgitation. Tricuspid Valve: Normal appearance of the tricuspid valve. Estimated peak PA systolic pressure 32 mmHg. There is mild tricuspid regurgitation. Pulmonic Valve: Pulmonic valve not well visualized. There is trace pulmonic regurgitation. Pericardium: Trivial pericardial effusion. Aorta: Normal aortic root. IVC: Dilated IVC with respiratory collapse consistent with elevated right atrial pressure. Conclusions Normal left ventricular systolic function. Normal left ventricular cavity size. Sigmoid septum. Ejection fraction is visually estimated at 60 %. Tissue Doppler/Mitral Doppler indices are consistent with impaired relaxation (Stage I diastolic dysfunction). Mild mitral leaflet calcification. Mild mitral annular calcification. Trace mitral regurgitation. No significant aortic stenosis or insufficiency. Aortic cusps appear mildly calcified. Trace aortic valve regurgitation. Normal appearance of the tricuspid valve. Estimated peak PA systolic pressure 32 mmHg. There is mild tricuspid regurgitation. Pulmonic valve not well visualized. There is trace pulmonic regurgitation. Trivial pericardial effusion. Electronically Signed By: Justice Myrick 27-Jul-2018 16:38:00 -0800 Patient Name: KEY CASTELLANO Study Date: 27-Jul-2018 [id number]
--- NOTE | 2018-07-27 16:59 | NUR ---
RN NOTES: Pt transported to 2284, escorted by transport, volunteer, and PLASMA CENTER NURSE with all personal belongings. Pt stable, on O2 3L/min. Care relinquished.
--- NOTE | 2018-07-27 17:00 | NUR ---
Transfer Notes Patient transferred from 510[address], recieved report from Danyell KUMAR. Alert and oriented verbally responsive, family at bedside. Oriented to unit, POC reviewed and understood. Patient and family refusing bed alarm, charge nurse made aware, provided education. All needs attended to will monitor.
[2018-07-27] MEDS ORDERED: INSULIN ASPART [NOVOLOG] 3 ML PEN SC SCH (17:30)
[2018-07-27] MEDS: Insulin NOVOLOG SS MILD Algorithm (SS with meals and bedtime) SC SCH ×2 (17:49→21:52)
--- NOTE | 2018-07-27 18:52 | NUR ---
End of Shift Notes No changes noted, resting comfortably in bed, all needs attended to hourly roundings done
[2018-07-27] MEDS: ATORVASTATIN 10 MG TAB PO SCH (21:00)
[2018-07-27] MEDS: GABAPENTIN 100 MG CAP PO SCH (21:00)
[2018-07-28 01:51] VITALS: BP 123/56; PULSE 98; RESP 18
[2018-07-28] MEDS: ACCUCHECK AT 2AM (Patients on SS coverage) XX SCH (02:14)
--- NOTE | 2018-07-28 04:39 | NUR ---
SHIFT REPORT: Received patient with family members while sitting on the chair. No s/sx of distress or complain of pain was noted.No s/sx of hypo/hyperglycemia was observed.Patient refused bed alarm since her family will be staying with her 24 hours. Patient's temperature from 20:35 was 99.7F, went up to 100.3F @ 0100. Tylenol was given and cooling measures provided. was informed and got an orders for blood culture x 2,lactic acid and UA/C&S. Family was made aware of the orders.instructed the family to call for assistance if needed. will continue to monitor.
[2018-07-28] MEDS: FUROSEMIDE 40 MG INJ IV SCH (06:00)
[2018-07-28 08:06] VITALS: BP 100/48; PULSE 87; RESP 20
[2018-07-28] MEDS: INSULIN GLARGINE [LANTus] (100 UNITS/ML) SYG SC SCH (08:23)
[2018-07-28] MEDS: INSULIN ASPART [NOVOLOG] 3 ML PEN SC SCH ×3 (08:24→17:54)
[2018-07-28] MEDS: Insulin NOVOLOG SS MILD Algorithm (SS with meals and bedtime) SC SCH ×4 (08:24→21:12)
--- NOTE | 2018-07-28 08:39 | NUR ---
NURSES NOTES: RECEIVED PT SITTING UP IN THE CHAIR,A/O X4. NO SOB NOTED.ON O2 3L VIA NC O2 SAT 97%. . PT DENIES PAIN OR DISCOMFORT AT THIS TIME. PT REFUSED CHAIR ALARM AT THIS TIME,PT'S DAUGHTER AMY AT BEDSIDE PT TEACHING GIVEN RE: IMPORTANCE CHAIR ALARM FOR SAFETY AND FALL PREVENTION .PT AND PT'S DAUGHTER BOTH VERBALIZED UNDERSTANDING, INSTRUCTED TO CALL FOR ANY ASSISTANCE AT ANY TIME TO PREVENT FALL AND INJURY. CALL LIGHT WITHIN REACH. HGB 7.6 , HCT 26.3 DR. JACQUES NOTIFIED. NO NEW ORDER RECEIVED. SAFETY PRECAUTIONS MAINTAINED , HOURLY ROUNDING ESTABLISHED.
[2018-07-28] MEDS: ENALAPRIL 10 MG TAB PO SCH ×2 (09:00→12:57)
[2018-07-28] MEDS: ATENOLOL 50 MG TAB PO SCH ×2 (09:00→12:57)
[2018-07-28] MEDS: DOCUSATE SODIUM 100 MG CAP PO SCH ×2 (10:12→21:04)
[2018-07-28 13:05] VITALS: BP 133/60; PULSE 91; RESP 20
--- NOTE | 2018-07-28 14:33 | PN ---
Date/Time of Note Date/Time of Note DATE: 07/28/18 TIME: 14:29 Assessment/Plan VTE Prophylaxis Risk score (from Ns)>0 risk: 4 SCD applied (from [facility] [place]): No SCD contraindicated: low risk/ambulating Pharmacological prophylaxis: NA/contraindicated Pharm contraindication: low risk/ambulating Lines/Catheters IV Catheter Type (from [facility]): Saline Lock Assessment/Plan Assessment/Plan 57 yo obese woman with metastatic breast cancer transferred here for L sided malignant effusion for PleurX. #left-sided hydropneumothorax - She has a L malignant effusion - Subsequently developed pneumothorax after thoracentesis at OSH. This pneumo has decreased in size since 07/24, does not require chest tube. - The patient has good functional status and is about ECOG 1-2. - Patient and son understand that pleurX will likely be permanent, as malignant effusions do not usually resolve. - They also understand that pleurX will require daily maintenance and will not necessary get the patient off oxygen. - Overall the patient is a good candidate for pleurX. - Spoke to radiology nurse; Dr. Johnson (IR) is tentatively planning for Monday 07/30 in the OR with anesthesia. Hold anticoag prior, NPO before MN. # breast cancer with metastasis: - Patient currently is not on chemotherapy since April secondary to toxicity. - Dr. Claire follows outpatient. - Cont home analgesics. # hypertension: Continue atenolol, EVERARDO inhibitor # diabetes: Continue insulin, insulin sliding scale, will hold home oral hypoglycemics # hyperlipidemia: Continue statin # DVT GI prophylaxis: SCDs Result Diagram: 07/28/18 0221 07/28/18 0221 Results 24hrs Laboratory Tests Test 07/27/18 17:37 07/27/18 21:02 07/28/18 02:21 07/28/18 08:08 Bedside Glucose 340 H 291 H 274 H White Blood 8.7 # Count Red Blood Count 3.28 L Hemoglobin 7.6 L Hematocrit 26.3 L Mean Corpuscular 80.2 L Volume Mean Corpuscular 23.2 L Hemoglobin Mean Corpuscular 28.9 L Hemoglobin Monik nt Red Cell 19.7 H Distribution Width Platelet Count 325 Mean Platelet 8.6 Volume Immature 0.700 H Granulocytes % Neutrophils % 70.8 Lymphocytes % 21.2 Monocytes % 7.0 Eosinophils % 0.1 Basophils % 0.2 Nucleated Red 0.0 Blood Cells % Immature 0.060 H Granulocytes # Neutrophils # 6.2 Lymphocytes # 1.8 Monocytes # 0.6 Eosinophils # 0.0 Basophils # 0.0 Nucleated Red 0.0 Blood Cells # Sodium Level 135 Potassium Level 3.8 Chloride Level 93 L Carbon Dioxide 34 H Level Anion Gap 8 Blood Urea 21 H Nitrogen Creatinine 0.72 Est Glomerular > 60 Filtrat Rate mL/min Glucose Level 284 H Lactic Acid 1.0 Level Calcium Level 8.1 L Total Bilirubin 0.3 Direct Bilirubin 0.00 Indirect 0.3 Bilirubin Aspartate Amino 21 Transf (AST/SGOT ) Alanine 7 L Aminotransferase (ALT/SGPT) Alkaline 174 H Phosphatase Total Protein 6.8 Albumin 3.3 Globulin 3.50 H Albumin/Globulin 0.94 Ratio Test 07/28/18 09:25 07/28/18 12:56 Urine Color YELLOW Urine Clarity CLOUDY A Urine pH 5.0 Urine Specific 1.024 [place] Urine Ketones TRACE A Urine Nitrite NEGATIVE Urine Bilirubin NEGATIVE Urine NEGATIVE Urobilinogen Urine Leukocyte 1+ H Esterase Urine 1 Microscopic RBC Urine 10 H Microscopic WBC Urine Squamous MODERATE Epithelial Cells Urine Bacteria FEW A Urine Hemoglobin NEGATIVE Urine Glucose NEGATIVE Urine Total 1+ H Protein Bedside Glucose 312 H Subjective 24 Hr Interval Summary Free Text/Dictation No acute overnight events. Elevated temp to 100.3 Patient is sleeping comfortably. According to the son this is the first sleep she's gotten over the past week. Oxygen stable at 3L NC. Exam/Review of Systems Vital Signs Vitals Vital Signs Date Temp Pulse Resp B/P (MAP) Pulse Ox O2 O2 Flow FiO2 Time Delivery Rate 07/28/18 97.9 91 20 133/60 96 Nasal 13:05 (84) Cannula 07/28/18 3.0 09:30 Intake and Output 07/27/18 07/27/18 07/28/18 1515:00 23:00 07:00 IntakeIntake Total 860 ml BalanceBalance 860 ml Exam General: Obese woman sleeping comfortably laying on her L side. HEENT: Atraumatic, normocephalic. Neck: Supple with full range of motion. No rigidity or meningismus Chest: Nontender Lungs: Diminished breath sounds at the left lung base, coarse breath sounds bilaterally Heart: Normal S1-S2, Regular rhythm and rate. Abdomen: Soft , nontender, nondistended , bowel sounds are present. No guarding no rebound tenderness , No masses or organomegaly. No costovertebral temporal angle mass Extremities: 2+ pitting edema of the bilateral lower extremities Medications Medications Current Medications IV Flush (NS 3 ml) 3 ml PER PROTOCOL IV ; Start 07/26/18 at 20:30 Ondansetron HCl (Zofran Inj) 4 mg Q6H PRN IV NAUSEA AND/OR VOMITING; Start 07/26/18 at 20:30 Acetaminophen (Tylenol Tab) 650 mg Q6H PRN PO PAIN LEVEL 1-3 OR FEVER Last administered on 07/28/18at 00:52; Admin Dose 650 MG; Start 07/26/18 at 20:30 Docusate Sodium (Colace) 100 mg Q12H PRN PO CONSTIPATION; Start 07/26/18 at 20:30 Bisacodyl (Dulcolax) 5 mg DAILY PRN PO CONSTIPATION; Start 07/26/18 at 20:30 Atenolol (Tenormin) 50 mg DAILY PO Last administered on 07/28/18at 12:57; Admin Dose 50 MG; Start 07/27/18 at 09:00 Atorvastatin Calcium (Lipitor) 10 mg QHS PO Last administered on 07/27/18at 21:00; Admin Dose 10 MG; Start 07/26/18 at 21:00 Docusate Sodium (Colace) 100 mg BID PO Last administered on 07/28/18at 10:12; Admin Dose 100 MG; Start 07/26/18 at 21:00 Gabapentin (Neurontin) 100 mg QHS PO Last administered on 07/27/18at 21:00; Admin Dose 100 MG; Start 07/26/18 at 21:00 Acetaminophen/ Hydrocodone Bitart ([place] (5/325)) 5 tab Q6 PRN PO PAIN; Start 07/26/18 at 20:30 Tramadol HCl (Ultram) 50 mg BID PRN PO PAIN; Start 07/26/18 at 20:30 Miscellaneous Information 1 ea NOTE XX ; Start 07/26/18 at 21:00 Glucose (Glutose) 15 gm Q15M PRN PO DECREASED GLUCOSE; Start 07/26/18 at 21:00 Glucose (Glutose) 22.5 gm Q15M PRN PO DECREASED GLUCOSE; Start 12/27/18 at 21:00 Dextrose (D50w Syringe) 25 ml Q15M PRN IV DECREASED GLUCOSE; Start 07/26/18 at 21:00 Dextrose (D50w Syringe) 50 ml Q15M PRN IV DECREASED GLUCOSE; Start 07/26/18 at 21:00 Glucagon (Glucagen) 1 mg Q15M PRN IM DECREASED GLUCOSE; Start 07/26/18 at 21:00 Glucose (Glutose) 15 gm Q15M PRN BUCCAL DECREASED GLUCOSE; Start 07/26/18 at 21:00 Enalapril Maleate (Vasotec) 10 mg DAILY PO Last administered on 07/28/18at 12:57; Admin Dose 10 MG; Start 07/27/18 at 11:00 Insulin Aspart (Novolog Insulin Pen) (Adult SC Insulin - Mild Algorithm)... AC MEALS AND BEDTIME SC Last administered on 07/28/18at 12:59; Admin Dose 5 UNIT; Start 07/27/18 at 17:45 Diagnostic Test (Pha) (Accu-Chek) 1 ea 02 XX Last administered on 07/28/18at 02:14; Admin Dose 1 EA; Start 07/28/18 at 02:00 Insulin Aspart (Novolog Insulin Pen) 12 unit WITH MEALS SC Last administered on 07/28/18at 13:00; Admin Dose 12 UNIT; Start 07/28/18 at 12:00 Insulin Glargine (Lantus) 33 units DAILY@08 SC ; Start 07/29/18 at 08:00 VONDA JACQUES MD Jul 28, 2018 14:33
--- NOTE | 2018-07-28 18:29 | NUR ---
SHIFT SUMMARY: NO SIGNIFICANT CHANGE OF CONDITION.ON O2 3L VIA NC O2 SAT 97%. NO RESPIRATORY DISTRESS NOTED. UP / AMBULATE AD SYLVIA W/ ASSIST FOR SAFETY. HOURLY ROUNDING RENDERED. SAFETY PRECAUTIONS MAINTAINED. FAMILY AT BEDSIDE SUPPORTIVE OF CARE. ALL NEEDS ATTENDED ADN RENDERED.
[2018-07-28 20:13] VITALS: BP 119/56; PULSE 99; RESP 19
[2018-07-28] MEDS: GABAPENTIN 100 MG CAP PO SCH (21:03)
[2018-07-28] MEDS: ATORVASTATIN 10 MG TAB PO SCH (21:03)
[2018-07-29 02:00] VITALS: BP 118/56; PULSE 102; RESP 18
[2018-07-29] MEDS: ACCUCHECK AT 2AM (Patients on SS coverage) XX SCH (02:00)
--- NOTE | 2018-07-29 02:20 | NUR ---
Patient's blood sugar was 363 when rechecked at 0213. Notified hospitalist [facility] consultant, Dr. Anaya. Received telephone order for 5 units of Novolog x1. Novolog given as ordered.
[2018-07-29] MEDS ORDERED: INSULIN ASPART [NOVOLOG] 3 ML PEN SC ONE (03:00)
--- NOTE | 2018-07-29 04:00 | NUR ---
Rechecked blood sugar. Blood sugar is 261. Will continue to monitor.
--- NOTE | 2018-07-29 06:22 | NUR ---
END OF SHIFT SUMMARY Received patient from AM shift on 07/28 at 1915. Patient is sitting in chair. Alert and oriented x4. Son is staying over. Vital signs WNL. Kept patient on 3L of O2. Denies shortness of breath. Accucheck done as ordered. Insulin administered as ordered. Denies pain. Fall precautions initiated. Patient remains free from fall injuries. All needs attended. Will endorse to oncoming shift.
[2018-07-29] MEDS ORDERED: INSULIN GLARGINE [LANTus] (100 UNITS/ML) SYG SC SCH (08:00)
[2018-07-29 08:06] VITALS: BP 116/55; PULSE 96; RESP 19
[2018-07-29] MEDS: INSULIN ASPART [NOVOLOG] 3 ML PEN SC SCH ×3 (08:49→17:36)
[2018-07-29] MEDS: Insulin NOVOLOG SS MILD Algorithm (SS with meals and bedtime) SC SCH ×4 (08:49→20:38)
[2018-07-29] MEDS: ENALAPRIL 10 MG TAB PO SCH (08:53)
[2018-07-29] MEDS: ATENOLOL 50 MG TAB PO SCH (08:53)
[2018-07-29] MEDS: DOCUSATE SODIUM 100 MG CAP PO SCH ×2 (08:53→20:36)
--- NOTE | 2018-07-29 13:35 | PN ---
Date/Time of Note Date/Time of Note DATE: 07/29/18 TIME: 13:31 Assessment/Plan VTE Prophylaxis Risk score (from Ns)>0 risk: 7 SCD applied (from Ns): No SCD contraindicated: low risk/ambulating Pharmacological prophylaxis: NA/contraindicated Pharm contraindication: low risk/ambulating Lines/Catheters [facility] Saline Lock Assessment/Plan Assessment/Plan 57 yo obese woman with metastatic breast cancer transferred here for L sided malignant effusion for PleurX. #left-sided hydropneumothorax - She has a L malignant effusion - Subsequently developed pneumothorax after thoracentesis at OSH. This pneumo has decreased in size since 07/24, does not require chest tube. - The patient has good functional status and is about ECOG 1-2. - Patient and son understand that pleurX will likely be permanent, as malignant effusions do not usually resolve. - They also understand that pleurX will require daily maintenance and will not necessary get the patient off oxygen. - Overall the patient is a good candidate for pleurX. - Spoke to radiology nurse; Dr. Johnson (IR) is tentatively planning for Monday 07/30 in the OR with anesthesia. Hold anticoag prior, NPO after MN. #LE edema - Improved after IV diuresis # breast cancer with metastasis: - Patient currently is not on chemotherapy since April secondary to toxicity. - Dr. Claire follows outpatient. - Cont home analgesics. # hypertension: Continue atenolol, EVERARDO inhibitor # diabetes: Continue insulin, insulin sliding scale, will hold home oral hypoglycemics # hyperlipidemia: Continue statin # DVT GI prophylaxis: SCDs Dispo: Will need home oxygen, case management consulted. After pleurX will likely need observation overnight. Result Diagram: 07/29/18 0515 07/29/18 0515 Subjective 24 Hr Interval Summary Free Text/Dictation No acute overnight events. Patient sleeping comfortably. Still on 4L NC; able to ambulate in the hallway on oxygen. Exam/Review of Systems Vital Signs Vitals Vital Signs Date Temp Pulse Resp B/P (MAP) Pulse Ox O2 O2 Flow FiO2 Time Delivery Rate 07/29/18 99.1 96 19 116/55 93 08:06 (75) 07/29/18 Nasal 3.0 02:00 Cannula Intake and Output 07/28/18 07/28/18 07/29/18 1515:00 23:00 07:00 IntakeIntake Total 660 ml 480 ml OutputOutput Total 80 ml BalanceBalance 580 ml 480 ml Exam General: Obese woman sitting up in chair on nasal cannula HEENT: Atraumatic, normocephalic. Neck: Supple with full range of motion. No rigidity or meningismus Chest: Nontender Lungs: Diminished breath sounds at the left lung base, coarse breath sounds patti aterally Heart: Normal S1-S2, Regular rhythm and rate. Abdomen: Soft , nontender, nondistended , bowel sounds are present. No guarding no rebound tenderness , No masses or organomegaly. No costovertebral temporal angle mass Extremities: 1+ nonpitting edema of the bilateral lower extremities Medications Medications Current Medications IV Flush (NS 3 ml) 3 ml PER PROTOCOL IV ; Start 07/26/18 at 20:30 Ondansetron HCl (Zofran Inj) 4 mg Q6H PRN IV NAUSEA AND/OR VOMITING; Start 07/26/18 at 20:30 Acetaminophen (Tylenol Tab) 650 mg Q6H PRN PO PAIN LEVEL 1-3 OR FEVER Last administered on 07/28/18at 00:52; Admin Dose 650 MG; Start 07/26/18 at 20:30 Docusate Sodium (Colace) 100 mg Q12H PRN PO CONSTIPATION; Start 07/26/18 at 20:30 Bisacodyl (Dulcolax) 5 mg DAILY PRN PO CONSTIPATION; Start 07/26/18 at 20:30 Atenolol (Tenormin) 50 mg DAILY PO Last administered on 07/29/18at 08:53; Admin Dose 50 MG; Start 07/27/18 at 09:00 Atorvastatin Calcium (Lipitor) 10 mg QHS PO Last administered on 07/28/18at 21:03; Admin Dose 10 MG; Start 07/26/18 at 21:00 Docusate Sodium (Colace) 100 mg BID PO Last administered on 07/29/18at 08:53; Admin Dose 100 MG; Start 07/26/18 at 21:00 Gabapentin (Neurontin) 100 mg QHS PO Last administered on 07/28/18at 21:03; Admin Dose 100 MG; Start 07/26/18 at 21:00 Acetaminophen/ Hydrocodone Bitart ([place] (5/325)) 5 tab Q6 PRN PO PAIN; Start 07/26/18 at 20:30 Tramadol HCl (Ultram) 50 mg BID PRN PO PAIN; Start 07/26/18 at 20:30 Miscellaneous Information 1 ea NOTE XX ; Start 07/26/18 at 21:00 Glucose (Glutose) 15 gm Q15M PRN PO DECREASED GLUCOSE; Start 07/26/18 at 21:00 Glucose (Glutose) 22.5 gm Q15M PRN PO DECREASED GLUCOSE; Start 07/26/18 at 21:00 Dextrose (D50w Syringe) 25 ml Q15M PRN IV DECREASED GLUCOSE; Start 07/26/18 at 21:00 Dextrose (D50w Syringe) 50 ml Q15M PRN IV DECREASED GLUCOSE; Start 07/26/18 at 21:00 Glucagon (Glucagen) 1 mg Q15M PRN IM DECREASED GLUCOSE; Start 07/26/18 at 21:00 Glucose (Glutose) 15 gm Q15M PRN BUCCAL DECREASED GLUCOSE; Start 07/26/18 at 21:00 Enalapril Maleate (Vasotec) 10 mg DAILY PO Last administered on 07/29/18at 08:53; Admin Dose 10 MG; Start 07/27/18 at 11:00 Insulin Aspart (Novolog Insulin Pen) (Adult SC Insulin - Mild Algorithm)... AC MEALS AND BEDTIME SC Last administered on 07/29/18at 13:05; Admin Dose 2 UNIT; Start 07/27/18 at 17:45 Diagnostic Test (Pha) (Accu-Chek) 1 ea 02 XX Last administered on 07/28/18at 02:14; Admin Dose 1 EA; Start 07/28/18 at 02:00 Insulin Aspart (Novolog Insulin Pen) 12 unit WITH MEALS SC Last administered on 07/29/18at 13:06; Admin Dose 12 UNIT; Start 07/28/18 at 12:00 Insulin Glargine (Lantus) 33 units DAILY@08 SC Last administered on 07/29/18at 08:49; Admin Dose 33 UNITS; Start 07/29/18 at 08:00 VONDA JACQUES MD Jul 29, 2018 13:35
[2018-07-29 14:00] VITALS: BP 106/55; PULSE 87; RESP 20
--- NOTE | 2018-07-29 18:45 | NUR ---
End of shift summary: Patient in stable condition. V.S within normal limits .Patient in stable condition .No s/s of any acute distress. V,S within normal limits .O2 via N.C at 3L .Patient ambulating . Last BS 378 ,Covered with 7 units of NovoLog (per protocol) + 12 units with meal . notified .Insulin adjusted per new orders . Call light within reach ,family at bedside .Full report will be given to next shift RN.
[2018-07-29 20:17] VITALS: BP 129/60; PULSE 95; RESP 17
[2018-07-29] MEDS: ATORVASTATIN 10 MG TAB PO SCH (20:36)
[2018-07-29] MEDS: GABAPENTIN 100 MG CAP PO SCH (20:36)
[2018-07-30] VITALS (10 sets, daily range): BP systolic 96–128; BP diastolic 48–60; PULSE 88–99; RESP 18–25
[2018-07-30] MEDS: ACCUCHECK AT 2AM (Patients on SS coverage) XX SCH (02:11)
--- NOTE | 2018-07-30 06:08 | NUR ---
SHIFT NOTES: PATIENT KEPT NPO AFTER MIDNIGHT FOR PLEUR-X PLACEMENT TODAY. NO S/S HYPO/HYPERGLYCEMIA NOTED.NO COMPLAIN OF PAIN. CONT. ON O2 AT 3L/MIN. VIA NASAL CANNULA.NO RESP. DISTRESS NOTED.
[2018-07-30] MEDS: INSULIN ASPART [NOVOLOG] 3 ML PEN SC SCH ×5 (08:00→20:34)
[2018-07-30] MEDS: INSULIN GLARGINE [LANTus] (100 UNITS/ML) SYG SC SCH (08:37)
[2018-07-30] MEDS: ATENOLOL 50 MG TAB PO SCH (08:53)
[2018-07-30] MEDS: DOCUSATE SODIUM 100 MG CAP PO SCH ×2 (08:53→20:25)
[2018-07-30] MEDS: ENALAPRIL 10 MG TAB PO SCH (08:53)
[2018-07-30] MEDS ORDERED: INSULIN ASPART [NOVOLOG] 3 ML PEN SC SCH (09:00)
--- NOTE | 2018-07-30 09:05 | NUR ---
Patient being transported to OR, alert and verbally responsive. No acus distress.
[2018-07-30] MEDS ORDERED: HEPARIN 1000 UNITS/ML 10 ML INJ ONE (09:20)
[2018-07-30] MEDS ORDERED: LIDOCAINE 1% (MPF) 30 ML INJ ONE (09:20)
--- NOTE | 2018-07-30 09:38 | HPN ---
Date/Time of Note Date/Time of Note DATE: 07/30/18 TIME: 09:38 Interval H&P Admission Note Pt. seen H&P reviewed: No system changes ROSI HARRINGTON MD Jul 30, 2018 09:38
--- NOTE | 2018-07-30 09:45 | PREAC ---
Date/Time of Note Date/Time of Note DATE: 07/30/18 TIME: 09:41 Anesthesia Eval and Record Evaluation Time Pre-Procedure Interview DATE: 07/30/18 TIME: 09:41 Age 57 Sex female NPO: 8 hrs Preoperative diagnosis Left Malignant Pleural Effusion, s/p Breast cancer Planned procedure Left Pleurex Catheter Placement Past Medical History Past Medical History: Includes Cardio: HTN, Dyslipidemia Endo: Diabetes, Other (Hx of Breast cancer with Malignant Pleural Effusion) Heme: Anemia Surgery & Anesthesia Issues No known issue Meds Anticoagulation: No Beta Reinier within 24 hr: Yes Active Scripts Insulin Glargine* (Lantus*) 100 Unit/Ml Soln, 30 UNIT SC DAILY@08 for 30 Days Prov:PIERCE MARQUEZ 05/11/17 Insulin Aspart* (Novolog Insulin Pen*) 100 Unit/Ml Soln, 10 UNIT SC WITH MEALS for 30 Days Prov:PIERCE MARQUEZ 05/11/17 Docusate Sodium* (Colace*) 100 Mg Capsule, 100 MG PO BID, #30 CAP Prov:PIERCE MARQUEZ 05/11/17 Reported Medications Insulin Lispro (Humalog) 100 Unit/1 Ml Cartridge, 20 UNIT SQ TID, EA 07/27/18 Atorvastatin Calcium (Atorvastatin Calcium) 10 Mg Tablet, 10 MG PO QHS, #30 TAB 07/27/18 Tramadol Hcl* (Ultram*) 50 Mg Tablet, 50 MG PO Q8, TAB 07/27/18 [Solostar] No Conflict Check, 50 INJECTION BID 07/27/18 Metformin Hcl* (Metformin Hcl*) 1,000 Mg Tablet, 1000 MG PO BID WITH MEALS, #30 TAB 07/27/18 Atenolol* (Atenolol*) 50 Mg Tablet, 50 MG PO DAILY, #30 TAB 07/27/18 Aspirin* (Aspirin* EC) 81 Mg Tablet.dr, 81 MG PO DAILY, TAB 07/27/18 Enalapril Maleate* (Enalapril Maleate*) 10 Mg Tablet, 10 MG PO DAILY, TAB 07/27/18 Ferrous Sulfate* (Ferrous Sulfate*) 325 Mg Tabec, 325 MG PO BID, TAB 07/27/18 Hydrocodone/Acetaminophen ([place] 5-325 Tablet) 1 Each Tablet, 1 EACH PO Q6 PRN for PAIN, TAB 05/10/17 Tramadol Hcl* (Ultram*) 50 Mg Tablet, 50 MG PO BID PRN for PAIN, TAB 05/10/17 Atenolol* (Atenolol*) 50 Mg Tablet, 50 MG PO DAILY, #30 TAB 05/10/17 Atorvastatin Calcium (Atorvastatin Calcium) 10 Mg Tablet, 10 MG PO QHS, #30 TAB 05/10/17 Gabapentin* (Gabapentin*) 100 Mg Capsule, 100 MG PO QHS, #90 CAP 05/10/17 Current Medications IV Flush (NS 3 ml) 3 ml PER PROTOCOL IV ; Start 07/26/18 at 20:30 Ondansetron HCl (Zofran Inj) 4 mg Q6H PRN IV NAUSEA AND/OR VOMITING; Start 07/26/18 at 20:30 Acetaminophen (Tylenol Tab) 650 mg Q6H PRN PO PAIN LEVEL 1-3 OR FEVER Last administered on 07/28/18at 00:52; Admin Dose 650 MG; Start 07/26/18 at 20:30 Docusate Sodium (Colace) 100 mg Q12H PRN PO CONSTIPATION; Start 07/26/18 at 20:30 Bisacodyl (Dulcolax) 5 mg DAILY PRN PO CONSTIPATION; Start 07/26/18 at 20:30 Atenolol (Tenormin) 50 mg DAILY PO Last administered on 07/29/18at 08:53; Admin Dose 50 MG; Start 07/27/18 at 09:00 Atorvastatin Calcium (Lipitor) 10 mg QHS PO Last administered on 07/29/18at 20:36; Admin Dose 10 MG; Start 07/26/18 at 21:00 Docusate Sodium (Colace) 100 mg BID PO Last administered on 07/29/18at 20:36; Admin Dose 100 MG; Start 07/26/18 at 21:00 Gabapentin (Neurontin) 100 mg QHS PO Last administered on 07/29/18at 20:36; Admin Dose 100 MG; Start 07/26/18 at 21:00 Acetaminophen/ Hydrocodone Bitart ([place] (5/325)) 5 tab Q6 PRN PO PAIN; Start 07/26/18 at 20:30 Tramadol HCl (Ultram) 50 mg BID PRN PO PAIN; Start 07/26/18 at 20:30 Miscellaneous Information 1 ea NOTE XX ; Start 07/26/18 at 21:00 Glucose (Glutose) 15 gm Q15M PRN PO DECREASED GLUCOSE; Start 07/26/18 at 21:00 Glucose (Glutose) 22.5 gm Q15M PRN PO DECREASED GLUCOSE; Start 07/26/18 at 21:00 Dextrose (D50w Syringe) 25 ml Q15M PRN IV DECREASED GLUCOSE; Start 07/26/18 at 21:00 Dextrose (D50w Syringe) 50 ml Q15M PRN IV DECREASED GLUCOSE; Start 07/26/18 at 21:00 Glucagon (Glucagen) 1 mg Q15M PRN IM DECREASED GLUCOSE; Start 07/26/18 at 21:00 Glucose (Glutose) 15 gm Q15M PRN BUCCAL DECREASED GLUCOSE; Start 07/26/18 at 21:00 Enalapril Maleate (Vasotec) 10 mg DAILY PO Last administered on 07/29/18at 08:53; Admin Dose 10 MG; Start 07/27/18 at 11:00 Insulin Aspart (Novolog Insulin Pen) (Adult SC Insulin - Mild Algorithm)... AC MEALS AND BEDTIME SC Last administered on 07/29/18at 20:38; Admin Dose 4 UNIT; Start 07/27/18 at 17:45; Status Hold Diagnostic Test (Pha) (Accu-Chek) 1 ea 02 XX Last administered on 07/30/18at 02:11; Admin Dose 1 EA; Start 07/28/18 at 02:00 Insulin Aspart (Novolog Insulin Pen) 14 unit WITH MEALS SC ; Start 07/30/18 at 08:00 Insulin Glargine (Lantus) 39 units DAILY@08 SC Last administered on 07/30/18at 08:37; Admin Dose 39 UNITS; Start 07/30/18 at 08:00 Insulin Aspart (Novolog Insulin Pen) NOVOLOG *MILD* ALGORI... Q4 SC Last administered on 07/30/18at 08:39; Admin Dose 1 UNIT; Start 07/30/18 at 09:00 Meds reviewed: Yes Allergies Coded Allergies: No Known Allergy (Unverified , 05/10/17) Allergies Reviewed: Yes Labs/Studies Labs Reviewed: Reviewed by anesthesiologist Result Diagram: 07/30/18 0536 07/30/18 0536 Laboratory Tests 07/30/18 05:36 test: N/A Studies: ECG (n/a), CXR (Left Pleural Effusion) Pre-procedure Exam Last vitals Vital Signs Date Temp Pulse Resp B/P (MAP) Pulse Ox O2 O2 Flow FiO2 Time Delivery Rate 07/30/18 98.8 94 20 123/60 96 07:50 (81) 07/29/18 Nasal 3.0 21:00 Cannula Airway: Adequate mouth opening, Adequate thyromental dist Mallampati: Mallampati II Teeth: Normal Lung: Abnormal (Dimished Left Breath sound) Heart: Normal ASA Physical Status ASA physical status: 3 Emergency: None Planned Anesthetic General/MAC: MAC Planned Pain Management Parenteral pain med Pre-operative Attestations Prior to commencing anesthesia and surgery, the patient was re-evaluated, there was verification of: *The patient's identity *The results of appropriate recent lab work and preoperative vital signs *The above evaluation not changing prior to induction *Anesthetic plan, risk benefits, alternative and complications discussed with patient/family; questions answered; patient/family understands, accepts and wishes to proceed. RUBY VALENTE MD Jul 30, 2018 09:45
[2018-07-30] MEDS ORDERED: FENTAnyl 50 MCG/ML VIAL ONE (10:00)
[2018-07-30] MEDS ORDERED: hydrALAzine 20 MG INJ IV PRN (10:00)
[2018-07-30] MEDS ORDERED: OXYCODONE/ACETAMINOPHEN (5/325) TAB PO PRN (10:00)
[2018-07-30] MEDS ORDERED: EPHEDrine SULFATE 50 MG/5 ML SYG IV PRN (10:00)
[2018-07-30] MEDS ORDERED: FENTAnyl 50 MCG/ML VIAL IV PRN ×3 (10:00)
[2018-07-30] MEDS ORDERED: MEPERIDINE 25 MG INJ IV PRN (10:00)
[2018-07-30] MEDS ORDERED: LABETALOL HCL 20MG INJ IV PRN (10:00)
[2018-07-30] MEDS ORDERED: DIPHENHYDRAMINE 50 MG INJ IV PRN (10:00)
[2018-07-30] MEDS ORDERED: ONDANSETRON 4 MG INJ IV PRN (10:00)
[2018-07-30] MEDS ORDERED: MIDAZOLAM 1 MG/ML 2 ML INJ ONE (10:00)
[2018-07-30] MEDS ORDERED: HYDROmorphONE 1 MG/5 ML IV SYRINGE IV PRN ×3 (10:00)
[2018-07-30] MEDS ORDERED: DEXAMETHASONE 4 MG/ML 5 ML INJ ONE (10:17)
[2018-07-30] MEDS ORDERED: ONDANSETRON 4 MG INJ ONE (10:17)
[2018-07-30] MEDS ORDERED: CEFAZOLIN 1 GM INJ ONE (10:17)
[2018-07-30] MEDS ORDERED: METOCLOPRAMIDE 10 MG INJ ONE (10:17)
--- NOTE | 2018-07-30 10:56 | NUR ---
RECEIVED PATIENT FROM OR VIA [facility] POST PLUEREX CATHETER PLACEMENT . CATHETER TO LEFT UPPER BACK INTACT AND CAPPED. PATIENT AWAKE DENIES PAIN . BP STAB;LE SR .
--- NOTE | 2018-07-30 10:59 | PAC ---
Date/Time of Note Date/Time of Note DATE: 07/30/18 TIME: 10:58 Post-Anesthesia Notes Post-Anesthesia Note Last documented vital signs Vital Signs Date Temp Pulse Resp B/P (MAP) Pulse Ox O2 O2 Flow FiO2 Time Delivery Rate 07/30/18 98.8 94 20 123/60 100 face mask 8 L 11:06 (81) 07/29/18 Nasal 3.0 21:04 Cannula Activity: WNL Respiratory function: WNL Cardiovascular function: WNL Mental status: Baseline Pain reasonably controlled: Yes Hydration appropriate: Yes Nausea/Vomiting absent: Yes RUBY VALENTE MD Jul 30, 2018 10:59
--- NOTE | 2018-07-30 11:37 | NUR ---
TRANSFERRED TO [facility] IN STABLE CONDITION .PLUEREX CATHETER TO LEFT UPPER BACK INTACT .REPORT GIVEN TO NANCY.
[2018-07-30] MEDS ORDERED: SOD CHLORIDE 0.9% 250 ML IV* ONE (11:44)
--- NOTE | 2018-07-30 12:00 | NUR ---
Patient on oxygen 3L/min via NC, tried to wean patient off oxygen,. oxygen saturation went down to 83%, will continue oxygen 3L/min via NC with o2 sat of 94%
--- NOTE | 2018-07-30 12:04 | PN ---
Date/Time of Note Date/Time of Note DATE: 07/30/18 TIME: 11:58 Assessment/Plan VTE Prophylaxis Risk score (from Nsg)>0 risk: 7 SCD applied (from Ns): Yes Pharmacological prophylaxis: other Lines/Catheters IV Catheter Type (from Nrsg): Peripheral IV Assessment/Plan Assessment/Plan S: Patient received Pleurx catheter placement this morning. Still on oxygen. Tolerating diet. No acute events overnight otherwise. O: VS - see below PE: Gen: Lying in bed, family at the bedside, no acute distress HEENT: Atraumatic, normocephalic. Neck: Supple with full range of motion. No rigidity or meningismus Chest: Nontender Lungs: Less diminished breath sounds at the left lung base, coarse breath sounds bilaterally Heart: Normal S1-S2, Regular rhythm and rate. Abdomen: Soft , nontender, nondistended , bowel sounds are present. No guarding no rebound tenderness , No masses or organomegaly. No costovertebral temporal angle mass Extremities: 1+ nonpitting edema of the bilateral lower extremities Assessment/Plan: 57 yo obese woman with metastatic breast cancer transferred here for L sided malignant effusion for PleurX. #left-sided hydropneumothorax- She has a L malignant effusion- Subsequently developed pneumothorax after thoracentesis at OSH. This pneumo has decreased in size since 07/24, does not require chest tube.- The patient has good functional status- Patient and son understand that pleurX will likely be permanent, as malignant effusions do not usually resolve- They also understand that pleurX will require daily maintenance and will not necessary get the patient off oxygen. -Again patient is status post PleurX placement this morning, monitor for now #LE edema- Improved after IV diuresis -Monitor, ambulation # breast cancer with metastasis- Patient currently is not on chemotherapy since April secondary to toxicity- Dr. Claire hematology oncology follows outpatient. - Cont home analgesics. - for anemia likely secondary to this, hemoglobin 7.2 today, order for 2 units PRBC transfusion today. # hypertension: Stable - continue atenolol, EVERARDO inhibitor # diabetes: Sugars improved in the last 24 hours. A1c equals 8.1. - Continue insulin, insulin sliding scale, holding home oral hypoglycemics # hyperlipidemia: Continue statin # DVT GI prophylaxis: SCDs Dispo: Patient may need home oxygen, case management consulted and will test patient off of oxygen and see what her saturations are first before deciding to order this. Result Diagram: 07/30/18 0536 07/30/18 0536 Results 24hrs Laboratory Tests Test 07/29/18 13:03 07/29/18 17:32 07/29/18 20:34 07/30/18 02:05 Bedside Glucose 208 378 H 313 H 127 Test 07/30/18 05:36 07/30/18 08:33 White Blood 7.8 Count Red Blood Count 3.13 L Hemoglobin 7.2 L Hematocrit 25.0 L Mean Corpuscular 79.9 L Volume Mean Corpuscular 23.0 L Hemoglobin Mean Corpuscular 28.8 L Hemoglobin Monik nt Red Cell 19.3 H Distribution Width Platelet Count 371 Mean Platelet 8.8 Volume Immature 0.600 H Granulocytes % Neutrophils % 71.0 Lymphocytes % 20.0 Monocytes % 7.6 Eosinophils % 0.4 Basophils % 0.4 Nucleated Red 0.0 Blood Cells % Immature 0.050 H Granulocytes # Neutrophils # 5.5 Lymphocytes # 1.6 Monocytes # 0.6 Eosinophils # 0.0 Basophils # 0.0 Nucleated Red 0.0 Blood Cells # Sodium Level 141 Potassium Level 4.0 Chloride Level 94 L Carbon Dioxide 35 H Level Anion Gap 12 Blood Urea 15 Nitrogen Creatinine 0.57 Est Glomerular > 60 Filtrat Rate mL/min Glucose Level 133 # Calcium Level 8.5 Total Bilirubin 0.2 Direct Bilirubin 0.00 Indirect 0.2 Bilirubin Aspartate Amino 23 Transf (AST/SGOT ) Alanine 7 L Aminotransferase (ALT/SGPT) Alkaline 180 H Phosphatase Total Protein 6.6 Albumin 3.3 Globulin 3.30 H Albumin/Globulin 1.00 Ratio Bedside Glucose 171 Exam/Review of Systems Vital Signs Vitals Vital Signs Date Temp Pulse Resp B/P (MAP) Pulse Ox O2 O2 Flow FiO2 Time Delivery Rate 07/30/18 90 24 106/49 96 Nasal 3.0 11:26 (68) Cannula 07/30/18 97.7 11:01 Intake and Output 07/29/18 07/29/18 07/30/18 1515:00 23:00 07:00 IntakeIntake Total 960 ml 480 ml BalanceBalance 960 ml 480 ml Medications Medications Current Medications IV Flush (NS 3 ml) 3 ml PER PROTOCOL IV ; Start 07/26/18 at 20:30 Ondansetron HCl (Zofran Inj) 4 mg Q6H PRN IV NAUSEA AND/OR VOMITING; Start 07/26/18 at 20:30 Acetaminophen (Tylenol Tab) 650 mg Q6H PRN PO PAIN LEVEL 1-3 OR FEVER Last administered on 07/28/18at 00:52; Admin Dose 650 MG; Start 07/26/18 at 20:30 Docusate Sodium (Colace) 100 mg Q12H PRN PO CONSTIPATION; Start 07/26/18 at 20:30 Bisacodyl (Dulcolax) 5 mg DAILY PRN PO CONSTIPATION; Start 07/26/18 at 20:30 Atenolol (Tenormin) 50 mg DAILY PO Last administered on 07/29/18at 08:53; Admin Dose 50 MG; Start 07/27/18 at 09:00 Atorvastatin Calcium (Lipitor) 10 mg QHS PO Last administered on 07/29/18at 20:36; Admin Dose 10 MG; Start 07/26/18 at 21:00 Docusate Sodium (Colace) 100 mg BID PO Last administered on 07/29/18at 20:36; Admin Dose 100 MG; Start 07/26/18 at 21:00 Gabapentin (Neurontin) 100 mg QHS PO Last administered on 07/29/18at 20:36; Admin Dose 100 MG; Start 07/26/18 at 21:00 Acetaminophen/ Hydrocodone Bitart ([place] (5/325)) 5 tab Q6 PRN PO PAIN; Start 07/26/18 at 20:30 Tramadol HCl (Ultram) 50 mg BID PRN PO PAIN; Start 07/26/18 at 20:30 Miscellaneous Information 1 ea NOTE XX ; Start 07/26/18 at 21:00 Glucose (Glutose) 15 gm Q15M PRN PO DECREASED GLUCOSE; Start 07/26/18 at 21:00 Glucose (Glutose) 22.5 gm Q15M PRN PO DECREASED GLUCOSE; Start 07/26/18 at 21:00 Dextrose (D50w Syringe) 25 ml Q15M PRN IV DECREASED GLUCOSE; Start 07/26/18 at 21:00 Dextrose (D50w Syringe) 50 ml Q15M PRN IV DECREASED GLUCOSE; Start 07/26/18 at 21:00 Glucagon (Glucagen) 1 mg Q15M PRN IM DECREASED GLUCOSE; Start 07/26/18 at 21:00 Glucose (Glutose) 15 gm Q15M PRN BUCCAL DECREASED GLUCOSE; Start 07/26/18 at 21:00 Enalapril Maleate (Vasotec) 10 mg DAILY PO Last administered on 07/29/18at 08:53; Admin Dose 10 MG; Start 07/27/18 at 11:00 Insulin Aspart (Novolog Insulin Pen) (Adult SC Insulin - Mild Algorithm)... AC MEALS AND BEDTIME SC Last administered on 07/29/18at 20:38; Admin Dose 4 UNIT; Start 07/27/18 at 17:45; Status Hold Diagnostic Test (Pha) (Accu-Chek) 1 ea 02 XX Last administered on 07/30/18at 02:11; Admin Dose 1 EA; Start 07/28/18 at 02:00 Insulin Aspart (Novolog Insulin Pen) 14 unit WITH MEALS SC ; Start 07/30/18 at 08:00 Insulin Glargine (Lantus) 39 units DAILY@08 SC Last administered on 07/30/18at 08:37; Admin Dose 39 UNITS; Start 07/30/18 at 08:00 Insulin Aspart (Novolog Insulin Pen) NOVOLOG *MILD* ALGORI... Q4 SC Last administered on 07/30/18at 08:39; Admin Dose 1 UNIT; Start 07/30/18 at 09:00 Hydromorphone HCl (Dilaudid) 0.2 mg PACU PRN IV MILD PAIN LEVEL 1-3; Start 07/30/18 at 10:00; Stop 07/30/18 at 20:00 Hydromorphone HCl (Dilaudid) 0.4 mg PACU PRN IV MODERATE PAIN LEVEL 4-6; Start 07/30/18 at 10:00; Stop 07/30/18 at 20:00 Hydromorphone HCl (Dilaudid) 0.6 mg PACU PRN IV SEVERE PAIN LEVEL 7-10; Start 07/30/18 at 10:00; Stop 07/30/18 at 20:00 Fentanyl (Sublimaze) 25 mcg PACU ORDER PRN IV MILD PAIN LEVEL 1-3; Start 07/30/18 at 10:00; Stop 07/30/18 at 20:00 Fentanyl (Sublimaze) 50 mcg PACU ORDER PRN IV MODERATE PAIN LEVEL 4-6; Start 07/30/18 at 10:00; Stop 07/30/18 at 20:00 Fentanyl (Sublimaze) 75 mcg PACU ORDER PRN IV SEVERE PAIN LEVEL 7-10; Start 07/30/18 at 10:00; Stop 07/30/18 at 20:00 Oxycodone/ Acetaminophen (Percocet (5/ 325)) 1 tab PACU ORDER PRN PO PAIN LEVEL 1-5; Start 07/30/18 at 10:00; Stop 07/30/18 at 20:00 Ondansetron HCl (Zofran Inj) 4 mg PACU ORDER PRN IV NAUSEA AND/OR VOMITING; Start 07/30/18 at 10:00; Stop 07/30/18 at 20:00 Labetalol HCl (Labetalol) 5 mg PACU ORDER PRN IV ELEVATED BLOOD PRESSURE; Start 07/30/18 at 10:00; Stop 07/30/18 at 20:00 Hydralazine HCl (Apresoline) 5 mg PACU ORDER PRN IV ELEVATED BLOOD PRESSURE; Start 07/30/18 at 10:00; Stop 07/30/18 at 20:00 Ephedrine Sulfate 5 mg PACU ORDER PRN IV BLOOD PRESSURE SUPPORT; Start 07/30/18 at 10:00; Stop 07/30/18 at 20:00 Meperidine HCl (Demerol) 25 mg PACU ORDER PRN IV POST OPERATIVE SHIVERING; Start 07/30/18 at 10:00; Stop 07/30/18 at 20:00 Diphenhydramine HCl (Benadryl) 25 mg PACU ORDER PRN IV PRURITUS; Start 07/30/18 at 10:00; Stop 07/30/18 at 20:00 Sodium Chloride 250 ml @ 0 mls/hr Q0M ONCE IV* ; Start 07/30/18 at 11:44; Stop 07/30/18 at 11:45; Status ASHLEY HUMPHREY Jul 30, 2018 12:04
[2018-07-30] MEDS: Insulin NOVOLOG SS MILD Algorithm (SS with meals and bedtime) SC SCH (12:28)
--- NOTE | 2018-07-30 13:54 | NUR ---
CM NOTE: HOME 02 S/W Zbigniew BRIONES for [employer] (P:[phone], F:[phone]) who states that home 02 order should be faxed to him as well as Arjun at [employer] ([phone], F:[phone]). Orders faxed. Confirmation received. Robert Alexander RN CM [id number] Addendum: 07/30/18 at 1419 by LOKI ALEXANDER CM Received call from Arjun at [facility] who states that he will provide home O2.
--- NOTE | 2018-07-30 17:45 | NUR ---
Dr. Amanda aware of patient's blood sugar with new order
--- NOTE | 2018-07-30 18:42 | NUR ---
END OF SHIFT Patient alert no acute distress. Denies pain at this time. Needs attended. Pending type and screen result. Patient wants to wait for her son before she signs the consent for blood transfusion. Family members at bedside, informed that patient on carb controlled diet, verbalized understanding. Will continue to monitor. Pending stat glucose result.
--- NOTE | 2018-07-30 19:04 | NUR ---
Dr. Amanda informed of blood glucose from glucometer still HI, from lab with result of 590, with order to repeat blood glucose in 1 hour. will inform incoming shift
--- NOTE | 2018-07-30 19:36 | NUR ---
Patient refusing bed alarm ,family at bedside. Patient and family refusing bed alarm, per family, family member is always at bedside and patient gets anxious when the alarm is on. Explained risk and benefits to family still refuse bed alarm. charge nurse aware.
[2018-07-30] MEDS: GABAPENTIN 100 MG CAP PO SCH (20:25)
[2018-07-30] MEDS: ATORVASTATIN 10 MG TAB PO SCH (20:25)
[2018-07-30] MEDS: traMADol 50 MG TAB PO PRN (20:25)
[2018-07-30] MEDS ORDERED: INSULIN ASPART [NOVOLOG] 3 ML PEN SC ONE (23:00)
[2018-07-30] MEDS ORDERED: SOD CHLORIDE 0.9% 1,000 ML IV ONE (23:00)
[2018-07-31] VITALS (8 sets, daily range): BP systolic 95–140; BP diastolic 53–60; PULSE 61–83; RESP 18–20
--- NOTE | 2018-07-31 01:50 | NUR ---
STARTED THE TRANSFUSION OF 1ST PRBC. PATIENT WAS MONITORED FOR IST 30 MINUTES OF TRANSFUSION FOR ANY BT REACTION. NONE WAS NOTED. FAMILY MEMBERS AT BEDSIDE.
--- NOTE | 2018-07-31 01:55 | NUR ---
07/30 2230 Spoke with patient regarding safety rules. Patient was informed that she is a high risk for fall, bed/chair alarm must be activated. Patient refused. Per patient, she gets up 'every minute' and that her family will stay overnight. Patient was intructed to call for help as needed.
[2018-07-31] MEDS: ACCUCHECK AT 2AM (Patients on SS coverage) XX SCH (02:37)
--- NOTE | 2018-07-31 04:33 | NUR ---
SHIFT REPORT: PATIENT IS ON ONGOING 1ST UNIT OF PRBC.NO BLOOD TRANSFUSION REACTION WAS NOTED UP TO THIS TIME. SON STAYS WITH THE PATIENT. REFUSED THE BED/CHAIR ALARM. INSTRUCTED TO CALL FOR ASSISTANCE. VITAL SIGNS WITHIN NORMAL LIMIT. LATEST BLOOD SUGAR 374MG/DL . EDUCATED THE PATIENT AND FAMILY REGARDING THE DIABETIC DIET'S ROLE IN MAINTAINING BLOOD SUGAR WITHIN NORMAL LIMIT.DUE MEDICATIONS GIVEN. HOURLY ROUNDING WAS DONE. WILL CONTINUE TO MONITOR,
--- NOTE | 2018-07-31 06:25 | NUR ---
STARTED THE TRANSFUSION OF 2ND PRBC. NO REACTION WAS OBSERVED AT THIS TIME. SON WAS STILL AT PATIENT'S CHAIRSIDE. WILL ENDORSE
[2018-07-31] MEDS: ENALAPRIL 10 MG TAB PO SCH (08:11)
[2018-07-31] MEDS: ATENOLOL 50 MG TAB PO SCH (08:11)
[2018-07-31] MEDS: INSULIN GLARGINE [LANTus] (100 UNITS/ML) SYG SC SCH (08:16)
[2018-07-31] MEDS: INSULIN ASPART [NOVOLOG] 3 ML PEN SC SCH ×7 (08:17→21:10)
[2018-07-31] MEDS: DOCUSATE SODIUM 100 MG CAP PO SCH ×2 (08:18→21:04)
[2018-07-31] MEDS: traMADol 50 MG TAB PO PRN (12:31)
--- NOTE | 2018-07-31 13:34 | PN ---
Date/Time of Note Date/Time of Note DATE: 07/31/18 TIME: 13:29 Assessment/Plan VTE Prophylaxis Risk score (from Ns)>0 risk: 7 SCD applied (from Ns): Yes Pharmacological prophylaxis: other Lines/Catheters IV Catheter Type [facility]from [facility]): Peripheral IV Assessment/Plan Hospital Course S: Patient received Pleurx catheter yesterday. Sugars still significantly elevated in the 300-400 range yesterday, although slightly improved to the mid 200 range today. Received PRBC transfusion yesterday as well. O: VS - see below PE: Gen: Lying in bed, family at the bedside, no acute distress HEENT: Atraumatic, normocephalic. Neck: Supple with full range of motion. No rigidity or meningismus Chest: Nontender Lungs: Less diminished breath sounds at the left lung base, coarse breath sounds bilaterally Heart: Normal S1-S2, Regular rhythm and rate. Abdomen: Soft , nontender, nondistended , bowel sounds are present. No guarding no rebound tenderness , No masses or organomegaly. No costovertebral temporal angle mass Extremities: 1+ nonpitting edema of the bilateral lower extremities Assessment/Plan: 57 yo obese woman with metastatic breast cancer transferred here for L sided malignant effusion for PleurX. #left-sided hydropneumothorax- She has a L malignant effusion- Subsequently developed pneumothorax after thoracentesis at OSH. This pneumo has decreased in size since 07/24, does not require chest tube.- The patient has good functional status- Patient and son understand that pleurX will likely be permanent, as malignant effusions do not usually resolve- They also understand that pleurX will require daily maintenance and will not necessary get the patient off oxygen. -status post PleurX placement yesterday, monitor for now #LE edema- Improved after diuresis -Monitor, ambulation # breast cancer with metastasis- Patient currently is not on chemotherapy since April secondary to toxicity- Dr. Claire hematology oncology follows outpatient. - Cont home analgesics. -Monitor hemoglobin, improved to 10 today after 2 units PRBC transfusion given yesterday # hypertension: Stable - continue atenolol, EVERARDO inhibitor # diabetes: Sugars still significantly elevated, A1c equals 8.1. -We will increase Lantus and aspart insulin doses today, add patient's home metformin, continue insulin sliding scale # hyperlipidemia: Continue statin # DVT GI prophylaxis: SCDs Dispo: Patient qualifies for home oxygen, case management consulted and in the process of ordering this now, likely home in 24 hours once this has occurred and sugars have improved. Result Diagram: 07/31/18 1224 07/31/18 1224 Results 24hrs Laboratory Tests Test 07/30/18 17:33 07/30/18 17:36 07/30/18 17:53 07/30/18 18:54 Bedside Glucose > 595 *H > 595 *H > 595 *H Glucose Level 590 #*H Test 07/30/18 20:14 07/30/18 20:53 07/30/18 21:47 07/30/18 23:15 Bedside Glucose 590 *H 525 *H 448 *H Glucose Level 593 *H Test 07/31/18 02:32 07/31/18 06:06 07/31/18 08:08 07/31/18 12:21 Bedside Glucose 374 H 366 H 287 H Lab Scanned REFERENCE LAB Report Test 07/31/18 12:24 White Blood 8.3 Count Red Blood Count 4.07 #L Hemoglobin 10.0 #L Hematocrit 33.3 #L Mean 81.8 L Corpuscular Volume Mean 24.6 L Corpuscular Hemoglobin Mean 30.0 L Corpuscular Hemoglobin Conc ent Red Cell 17.5 H Distribution Width Platelet Count 419 H Mean Platelet 8.6 Volume Immature 0.600 H Granulocytes % Neutrophils % 80.6 H Lymphocytes % 10.2 L Monocytes % 8.4 Eosinophils % 0.0 Basophils % 0.2 Nucleated Red 0.0 Blood Cells % Immature 0.050 H Granulocytes # Neutrophils # 6.7 Lymphocytes # 0.9 Monocytes # 0.7 Eosinophils # 0.0 Basophils # 0.0 Nucleated Red 0.0 Blood Cells # Sodium Level 138 Potassium Level 4.9 Chloride Level 96 L Carbon Dioxide 33 H Level Anion Gap 9 Blood Urea 22 H Nitrogen Creatinine 0.52 Est Glomerular > 60 Filtrat Rate mL/min Glucose Level 300 #H Calcium Level 9.0 Total Bilirubin 0.3 Direct 0.00 Bilirubin Indirect 0.3 Bilirubin Aspartate Amino 18 Transf (AST/SGO T) Alanine 10 L Aminotransferas e (ALT/SGPT) Alkaline 176 H Phosphatase Total Protein 6.9 Albumin 3.4 Globulin 3.50 H Albumin/Globuli 0.97 n Ratio Exam/Review of Systems Vital Signs Vitals Vital Signs Date Temp Pulse Resp B/P (MAP) Pulse Ox O2 O2 Flow FiO2 Time Delivery Rate 07/31/18 98.3 61 18 95/53 (67) 96 Nasal 3.0 11:20 Cannula Intake and Output 07/30/18 07/30/18 07/31/18 1515:00 23:00 07:00 IntakeIntake Total 580 ml 840 ml 1360 ml OutputOutput Total 600 ml BalanceBalance -20 ml 840 ml 1360 ml Medications Medications Current Medications IV Flush (NS 3 ml) 3 ml PER PROTOCOL IV ; Start 07/26/18 at 20:30 Ondansetron HCl (Zofran Inj) 4 mg Q6H PRN IV NAUSEA AND/OR VOMITING; Start 07/26/18 at 20:30 Acetaminophen (Tylenol Tab) 650 mg Q6H PRN PO PAIN LEVEL 1-3 OR FEVER Last administered on 07/28/18at 00:52; Admin Dose 650 MG; Start 07/26/18 at 20:30 Docusate Sodium (Colace) 100 mg Q12H PRN PO CONSTIPATION; Start 07/26/18 at 20:30 Bisacodyl (Dulcolax) 5 mg DAILY PRN PO CONSTIPATION; Start 07/26/18 at 20:30 Atenolol (Tenormin) 50 mg DAILY PO Last administered on 07/31/18 08:11; Admin Dose 50 MG; Start 07/27/18 at 09:00 Atorvastatin Calcium (Lipitor) 10 mg QHS PO Last administered on 07/30/18at 20:25; Admin Dose 10 MG; Start 07/26/18 at 21:00 Docusate Sodium (Colace) 100 mg BID PO Last administered on 07/30/18at 20:25; Admin Dose 100 MG; Start 07/26/18 at 21:00 Gabapentin (Neurontin) 100 mg QHS PO Last administered on 07/30/18at 20:25; Admin Dose 100 MG; Start 07/26/18 at 21:00 Tramadol HCl (Ultram) 50 mg BID PRN PO PAIN Last administered on 07/31/18 12:31; Admin Dose 50 MG; Start 07/26/18 at 20:30 Miscellaneous Information 1 ea NOTE XX ; Start 07/26/18 at 21:00 Glucose (Glutose) 15 gm Q15M PRN PO DECREASED GLUCOSE; Start 07/26/18 at 21:00 Glucose (Glutose) 22.5 gm Q15M PRN PO DECREASED GLUCOSE; Start 07/26/18 at 21:00 Dextrose (D50w Syringe) 25 ml Q15M PRN IV DECREASED GLUCOSE; Start 07/26/18 at 21:00 Dextrose (D50w Syringe) 50 ml Q15M PRN IV DECREASED GLUCOSE; Start 07/26/18 at 21:00 Glucagon (Glucagen) 1 mg Q15M PRN IM DECREASED GLUCOSE; Start 07/26/18 at 21:00 Glucose (Glutose) 15 gm Q15M PRN BUCCAL DECREASED GLUCOSE; Start 07/26/18 at 21:00 Enalapril Maleate (Vasotec) 10 mg DAILY PO Last administered on 07/31/18 08:11; Admin Dose 10 MG; Start 07/27/18 at 11:00 Diagnostic Test (Pha) (Accu-Chek) 1 ea 02 XX Last administered on 07/31/18at 02:37; Admin Dose 1 EA; Start 07/28/18 at 02:00 Insulin Aspart (Novolog Insulin Pen) 14 unit WITH MEALS SC Last administered on 07/31/18 12:26; Admin Dose 14 UNIT; Start 07/30/18 at 08:00 Insulin Glargine (Lantus) 39 units DAILY@08 SC Last administered on 07/31/18 08:16; Admin Dose 39 UNITS; Start 07/30/18 at 08:00 Insulin Aspart (Novolog Insulin Pen) NOVOLOG *MODERATE* ALGORITHM WITH MEALS BEDTIME SC Last administered on 07/31/18 12:27; Admin Dose 8 UNIT; Start 07/30/18 at 18:00 Acetaminophen/ Hydrocodone Bitart ([place] (5/325)) 1 tab Q6H PRN PO PAIN; Start 07/31/18 at 10:00 ASHLEY CERRATO Jul 31, 2018 13:34
--- NOTE | 2018-07-31 13:35 | NUR ---
Called Radiology regarding Pleurx drain order, per [place]cho to call tomorrow and ask for a radiology nurse. Dr. Treasure smith.
[2018-07-31] MEDS: FERROUS SULFATE (EC) 325 MG TAB PO SCH ×2 (14:09→21:04)
[2018-07-31] MEDS: metFORMIN 500 MG TAB PO SCH ×2 (14:09→17:32)
--- NOTE | 2018-07-31 14:13 | NUR ---
Dr. Amanda aware of blood glucose 353 prior giving metformin. No new order at this time.
[2018-07-31] MEDS: ACCU-CHEK XX SCH ×2 (17:22→21:00)
--- NOTE | 2018-07-31 18:37 | NUR ---
END OF SHIFT Patient alert, no acute distress. Continue on oxygen at 3L/min via [place]. Due medications given, tolerated well. Dr. Amanda aware of patient's high blood glucose and adjusted patient's medications. Needs attended. Spoke with son and patient regarding bed/chair pad alarm and the importance for safety, per son, a family member will stay with the patient all the times and still refused the use of bed/chair alarm. Needs attended. Will continue to monitor.
[2018-07-31] MEDS: HYDROCODONE/APAP (5/325) TAB PO PRN (18:47)
[2018-07-31] MEDS ORDERED: ATORVASTATIN 10 MG TAB PO SCH (21:00)
[2018-07-31] MEDS: GABAPENTIN 100 MG CAP PO SCH (21:04)
[2018-08-01 01:50] VITALS: BP 102/57; PULSE 70; RESP 18
[2018-08-01] MEDS: ACCUCHECK AT 2AM (Patients on SS coverage) XX SCH (02:00)
[2018-08-01] MEDS: HYDROCODONE/APAP (5/325) TAB PO PRN ×2 (02:22→18:15)
--- NOTE | 2018-08-01 05:46 | NUR ---
SHIFT REPORT PT MORE COMFORTABLE SLEEPING AT THE CHAIR,SOB ON EXERTION.PLEURX INTACT.C/O PAIN,NORCO GIVEN ORDERED.SON AT BEDSIDE.WILL CONTINUE PLAN OF CARE.NEEDS ATTENDED.CALL LIGHT AT REACH.HOURLY ROUNDING DONE.PT AND FAMILY REFUSED BED AND CHAIR ALARM.
[2018-08-01] MEDS: ACCU-CHEK XX SCH ×3 (07:00→17:30)
[2018-08-01] MEDS: DOCUSATE SODIUM 100 MG CAP PO SCH (07:56)
[2018-08-01] MEDS: FERROUS SULFATE (EC) 325 MG TAB PO SCH (07:56)
[2018-08-01] MEDS: metFORMIN 500 MG TAB PO SCH ×2 (07:56→17:44)
[2018-08-01] MEDS ORDERED: INSULIN GLARGINE [LANTus] (100 UNITS/ML) SYG SC SCH (08:00)
[2018-08-01] MEDS: ENALAPRIL 10 MG TAB PO SCH (08:00)
[2018-08-01] MEDS: ATENOLOL 50 MG TAB PO SCH (08:00)
[2018-08-01] MEDS: INSULIN ASPART [NOVOLOG] 3 ML PEN SC SCH ×6 (08:00→17:40)
[2018-08-01 08:36] VITALS: BP 101/51; RESP 16
--- NOTE | 2018-08-01 12:02 | PDOCDIS ---
Discharge Instructions CONDITION [id number] Patient Condition: [id number] Stable HOME CARE INSTRUCTIONS: [id number] Special Diet: [id number] Carb controlled diet ACTIVITY: [id number] Activity Restrictions: [id number] Slowly Increase Activity Rest between Activity Avoid heavy lifting FOLLOW UP/APPOINTMENTS Follow-up Plan Please take your medications as prescribed. Please see your doctor in the clinic in the next few days. ASHLEY CERRATO Aug 01, 2018 12:02
[2018-08-01] MEDS ORDERED: HYDR-3980 PO (12:03)
[2018-08-01] MEDS ORDERED: LEVO750T8 PO (12:03)
--- NOTE | 2018-08-01 12:10 | DS ---
Date/Time of Note Date/Time of Note DATE: 08/01/18 TIME: 12:05 Discharge Summary Admission/Discharge Info Admit Date/Time Jul 26, 2018 at 19:23 Discharge Date/Time Discharge Diagnosis #left-sided hydropneumothorax- She has a L malignant effusion- Subsequently developed pneumothorax after thoracentesis at OSH. This pneumo has decreased in size since 07/24, does not require chest tube.- The patient has good functional status- Patient and son understand that pleurX will likely be permanent, as malignant effusions do not usually resolve- They also understand that pleurX will require daily maintenance and will not necessary get the patient off oxygen. -status post PleurX placement this admission #LE edema- Improved after diuresis # breast cancer with metastasis- Patient currently is not on chemotherapy since April secondary to toxicity- Dr. Claire hematology oncology follows outpatient. # hypertension: Stable # diabetes: A1c equals 8.1. # hyperlipidemia: Continue statin #Anemia: Improved after blood transfusion Patient Condition: Stable Procedures 2D echocardiogram July 19: Conclusions Normal left ventricular systolic function. Normal left ventricular cavity size. Sigmoid septum. Ejection fraction is visually estimated at 60 %. Tissue Doppler/Mitral Doppler indices are consistent with impaired relaxation (Stage I diastolic dysfunction). Mild mitral leaflet calcification. Mild mitral annular calcification. Trace mitral regurgitation. No significant aortic stenosis or insufficiency. Aortic cusps appear mildly calcified. Trace aortic valve regurgitation. Normal appearance of the tricuspid valve. Estimated peak PA systolic pressure 32 mmHg. There is mild tricuspid regurgitation. Pulmonic valve not well visualized. There is trace pulmonic regurgitation. Trivial pericardial effusion. Hx of Present Illness 57-year-old female with a history of metastatic breast cancer who presented to the ED at [facility] on 07/23/2018 with shortness of breath that had been going on for 2 weeks. She had no relieving factors of the shortness of breath. She would have shortness of breath with minimal exertion. She had a history of effusions in the past and had thoracentesis done. There was concern for possible repeat effusion. A chest x-ray was ordered which confirmed a large left pleural effusion. The patient had an emergent IR therapeutic thoracentesis done for drainage. After the drainage patient 12 respiratory distress and repeat chest x-ray showed a pneumothorax. Patient wanted to go home however prior to discharge she had a repeat chest x-ray done as well that showed a worsening pneumothorax and the patient was admitted to the hospital. He was also noted the patient required a nonrebreather mask which was eventually titrated down to 3 L nasal cannula. She remained stable in the ICU. She was found to have a left hydropneumothorax with increased left pleural effusion. Pulmonology was consulted and thoracic surgery was consulted for Pleurx catheter. She was subsequently transferred to [facility] for Pleurx catheter placement by . At the current time patient is sitting upright in bed in no acute distress, she does report that when she lays down to sleep it is does become difficult for her to breathe. She does see for her breast cancer she was being treated with chemotherapy however she has not been receiving chemotherapy since April secondary to toxicity. Hospital Course The patient was admitted. She was placed on appropriate insulin regimen to help control her sugars. They were elevated during the hospital stay but improved in the last 24 hours of her hospital stay. Regarding her left-sided hydropneumothorax and malignant effusion, the pneumothorax decreased in size since July 24 and did not require chest tube. Patient found to have good functional status as well. She did require oxygen. She qualified for home oxygen and this was set up by case management as well before the day of discharge. She received a Pleurx catheter placement as well in the left chest area, as malignant effusions do not tend to resolve, this was explained to patient and family which they understood. Over the course of her hospital stay her breathing symptoms improved with oxygen, drainage was monitor from the Pleurx catheter. Again her sugars improved. She was able to ambulate, tolerated p.o. diet. She was also found with a group B strep and E. coli u rinary tract infection, and placed on appropriate antibiotics for that. White blood cell count normal, no fevers. She will be discharged home today in improved condition. See below for full list of discharge medications. Home Meds Active Scripts Levofloxacin* (Levofloxacin*) 750 Mg Tablet, 750 MG PO DAILY, #7 TAB Prov:ASHLEY CERRATO S. 08/01/18 Hydrocodone/Acetaminophen (Randolph 10-325 Tablet) 1 Each Tablet, 1 EACH PO Q6, #30 TAB Prov:ASHLEY CERRATO S. 08/01/18 Insulin Glargine* (Lantus*) 100 Unit/Ml Soln, 30 UNIT SC DAILY@08 for 30 Days Prov:MELIDA MARQUEZBIR 05/11/17 Insulin Aspart* (Novolog Insulin Pen*) 100 Unit/Ml Soln, 10 UNIT SC WITH MEALS for 30 Days Prov:MELIDA MARQUEZBIR 05/11/17 Docusate Sodium* (Colace*) 100 Mg Capsule, 100 MG PO BID, #30 CAP Prov:JIMMYPIERCE 05/11/17 Reported Medications Insulin Lispro (Humalog) 100 Unit/1 Ml Cartridge, 20 UNIT SQ TID, EA 07/27/18 Atorvastatin Calcium (Atorvastatin Calcium) 10 Mg Tablet, 10 MG PO QHS, #30 TAB 07/27/18 Tramadol Hcl* (Ultram*) 50 Mg Tablet, 50 MG PO Q8, TAB 07/27/18 [Solostar] No Conflict Check, 50 INJECTION BID 07/27/18 Metformin Hcl* (Metformin Hcl*) 1,000 Mg Tablet, 1000 MG PO BID WITH MEALS, #30 TAB 07/27/18 Atenolol* (Atenolol*) 50 Mg Tablet, 50 MG PO DAILY, #30 TAB 07/27/18 Aspirin* (Aspirin* EC) 81 Mg Tablet.dr, 81 MG PO DAILY, TAB 07/27/18 Enalapril Maleate* (Enalapril Maleate*) 10 Mg Tablet, 10 MG PO DAILY, TAB 07/27/18 Ferrous Sulfate* (Ferrous Sulfate*) 325 Mg Tabec, 325 MG PO BID, TAB 07/27/18 Tramadol Hcl* (Ultram*) 50 Mg Tablet, 50 MG PO BID PRN for PAIN, TAB 05/10/17 Atenolol* (Atenolol*) 50 Mg Tablet, 50 MG PO DAILY, #30 TAB 05/10/17 Atorvastatin Calcium (Atorvastatin Calcium) 10 Mg Tablet, 10 MG PO QHS, #30 TAB 05/10/17 Gabapentin* (Gabapentin*) 100 Mg Capsule, 100 MG PO QHS, #90 CAP 05/10/17 Discontinued Reported Medications Hydrocodone/Acetaminophen (Randolph 5-325 Tablet) 1 Each Tablet, 1 EACH PO Q6 PRN for PAIN, TAB 05/10/17 Follow-up Plan Please take your medications as prescribed. Please see your doctor in the clinic in the next few days. Primary Care Provider Not On Staff Doctor Time spent on discharge: > 30 minutes Pending Labs Laboratory Tests Test 07/31/18 12:21 07/31/18 12:24 07/31/18 14:08 07/31/18 17:21 Bedside 287 353 302 Glucose mg/dL (70-220) mg/dL (70-220) mg/dL (70-220) White Blood 8.3 Count 10^3/ul (4.8-1 0.8) Red Blood 4.07 Count 10^6/ul (4.20- 5.40) Hemoglobin 10.0 g/dl (12.0-16. 0) Hematocrit 33.3 % (37.0-47.0) Mean 81.8 Corpuscular fl (82.0-101.0 Volume ) Mean 24.6 Corpuscular pg (29.0-33.0) Hemoglobin Mean 30.0 Corpuscular g/dl (32.0-37. Hemoglobin Conc 0) ent Red Cell 17.5 Distribution % (11.5-14.5) Width Platelet Count 419 10^3/UL (140-4 15) Mean Platelet 8.6 Volume fl (7.4-10.4) Immature 0.600 Granulocytes % % (0.001-0.429 ) Neutrophils % 80.6 % (39.0-77.0) Lymphocytes % 10.2 % (15.0-51.0) Monocytes % 8.4 % (0.0-11.0) Eosinophils % 0.0 % (0.0-7.0) Basophils % 0.2 % (0.0-2.0) Nucleated Red 0.0 Blood Cells % /100WBC (0.0-0 .0) Immature 0.050 Granulocytes # 10^3/ul (0.0-0 .031) Neutrophils # 6.7 10^3/ul (1.6-7 .5) Lymphocytes # 0.9 10^3/ul (0.8-2 .9) Monocytes # 0.7 10^3/ul (0.3-0 .9) Eosinophils # 0.0 10^3/ul (0.0-0 .5) Basophils # 0.0 10^3/ul (0.0-0 .1) Nucleated Red 0.0 Blood Cells # 10^3/ul (0.0-0 .0) Sodium Level 138 mmol/L (135-14 4) Potassium 4.9 Level mmol/L (3.5-5. 1) Chloride Level 96 mmol/L (97-110 ) Carbon Dioxide 33 Level mmol/L (21-31) Anion Gap 9 (5-13) Blood Urea 22 Nitrogen mg/dl (7-20) Creatinine 0.52 mg/dl (0.44-1. 00) Est Glomerular > 60 Filtrat mL/min (>60) Rate mL/min Glucose Level 300 mg/dl (70-220) Calcium Level 9.0 mg/dl (8.4-10. 2) Total 0.3 Bilirubin mg/dl (0.2-1.3 ) Direct 0.00 Bilirubin mg/dl (0.00-0. 20) Indirect 0.3 Bilirubin mg/dl (0-1.1) Aspartate Amino 18 Transf (AST/SGO IU/L (15-46) T) Alanine 10 Aminotransferas IU/L (13-69) e (ALT/SGPT) Alkaline 176 Phosphatase IU/L (42-121) Total Protein 6.9 g/dl (6.1-8.1) Albumin 3.4 g/dl (3.3-4.9) Globulin 3.50 g/dl (1.3-3.2) Albumin/Globuli 0.97 n Ratio Test 07/31/18 21:07 08/01/18 02:14 08/01/18 06:50 08/01/18 07:55 Bedside 183 75 97 Glucose mg/dL (70-220) mg/dL (70-220) mg/dL (70-220) Lab Scanned BLOOD TRANSFUS Report ASHLEY MIRELES Aug 01, 2018 12:10
[2018-08-01] MEDS ORDERED: LEVOFLOXACIN 750MG/D5W (PMX) 150 ML IVPB SCH (13:00)
--- NOTE | 2018-08-01 14:00 | NUR ---
CM NOTE: PLEUREX SUPPLIES /HH Order for Pleurex Supplies and HH received. Order faxed to [facility] ([phone], F:[phone]), [facility] ([phone], F:[phone]), and [facility] ([phone], F:[phone]). Confirmation received. Robert Scott RN CM [id number] Addendum: 08/01/18 at 1433 by LOKI SCOTT CM Received call from Arjun at [facility] who states that an order for drainage needs to be obtained prior to ordering supplies. CM to f/u with Dr. Amanda regarding drainage ordes. Addendum: 08/01/18 at 1450 by LOKI SCOTT CM Updated order for drain faxed to [facility], [facility] and [facility]. Addendum: 08/01/18 at 1455 by LOKI SCOTT CM Received call from Arjun from [facility] [employer] stating that they are able to supply pleurex supplies for pt, with delivery either tomorrow or Monday. Received call from [facility] stating that they are able to accept the pt with SOC on next day pleurex is to be drained, Monday08/04/2017.
[2018-08-01 14:39] VITALS: BP 115/54; PULSE 88; RESP 18
[2018-08-01] MEDS ORDERED: HYDROCODONE/APAP (10/325) TAB PO ONE (15:00)
--- NOTE | 2018-08-01 18:31 | NUR ---
DISCHARGE Pt alert and oriented, all due meds given as ordered. No acute distress noted. Discharge teaching done at bedside; pt and family verbalized understanding. How to use the drain was shown to family with instructions and a link to watch a video on how to use the drain. Home health will be arriving at pt's home on the with supplies. Pt was sent home with one drainage kit. Pt escorted with family and staff member via wheelchair.
== END 2018-08-01 19:00 | disposition home health service (06) | DRG 206 ==
LOC: TEL 19:23 → 2NE 07-27 17:00
PROVIDERS: ADMIT Internal Medicine; ATTEND Hospitalist
PROC: 0W9B30Z Drainage of Left Pleural Cavity with Drainage Device, Percutaneous Approach (ICD-10-PCS; principal; 2018-07-30 09:30)
DX: J95.89 Other postprocedural complications and disorders of respiratory system, not elsewhere classified (principal); J94.8 Other specified pleural conditions; C78.00 Secondary malignant neoplasm of unspecified lung; C79.51 Secondary malignant neoplasm of bone; J91.0 Malignant pleural effusion; I10 Essential (primary) hypertension; E11.9 Type 2 diabetes mellitus without complications; E78.5 Hyperlipidemia, unspecified; C50.919 Malignant neoplasm of unspecified site of unspecified female breast; R60.9 Edema, unspecified; Z79.4 Long term (current) use of insulin
CPT/HCPCS: 36430; 71045; 71250; 75989; 76942; 80053; 80061; 81001; 82947; 82962; 83036; 83605; 83735; 84443; 85025; 85610; 85730; 86850; 86900; 86901; 86920; 87040; 87086; 93306; 93970; J0690; J1100; J1644; J1815; J1940; J1956; J2250; J2405; J2765; J3010; J7030; J7040; P9016